=== PATIENT | male | born 1985 | race Caucasian/White ===

== ENCOUNTER 2023-06-09 08:47 | Outpatient (CLI) | payer BC, MEDICAID, SELFPAY ==
--- NOTE | 2023-06-09 08:55 | XR_ITS ---
WS: [id number] XR thoracic spine 3V* [id number] REASON FOR EXAM: M54.9 - Dorsalgia, unspecified FINDINGS: Minimal mid thoracic scoliosis convex left. No significant kyphosis. No significant abnormality of the thoracic vertebrae. There is a mild/moderate biconcave compression deformity of the L1. Mild biconcave compression deform ity of L2. Disc spaces in the thoracic spine are intact and relatively well preserved. IMPRESSION: Minimal thoracic scoliosis. Thoracic spine otherwise unremarkable. Lumbar compression deformities of unknown chronicity.
--- NOTE | 2023-06-09 08:55 | XR_ITS ---
WS: [id number] XR cervical spine 3V* [id number] REASON FOR EXAM: M54.2 - Cervicalgia FINDINGS: Straightening of the normal lordosis of the cervical spine. Normal odontoid and vertebral bodies. Minimal narrowing of the C6-C7 disc space with anterior osteophytes of C6 and C7. No significant listhesis. No facet joint abnormality. IMPRESSION: Alteration of the normal cervical spine curvature as above. Mild/moderate degenerative spondylosis at C6-C7.
== END 2023-06-09 08:48 | disposition home or self-care (01) ==
PROVIDERS: PCP Nurse Practitioner Family; Visit Provider Nurse Practitioner Family
DX: M54.2 Cervicalgia (principal); M54.6 Pain in thoracic spine; M41.9 Scoliosis, unspecified; M47.812 Spondylosis without myelopathy or radiculopathy, cervical region; R93.7 Abnormal findings on diagnostic imaging of other parts of musculoskeletal system
CPT/HCPCS: 72040; 72072

== ENCOUNTER → 2023-07-15 10:22 | Outpatient (BNVA) | payer BC, MEDICAID, SELFPAY | PROVIDERS: PCP Nurse Practitioner Family; Visit Provider Nurse Practitioner Family | DX: M54.50 Low back pain, unspecified (principal); G51.0 Bell's palsy; M54.2 Cervicalgia; I10 Essential (primary) hypertension | CPT/HCPCS: 80053; 86038; 86140; 86431 ==

== ENCOUNTER 2023-08-06 02:54 | Emergency (ER) | payer BC, MEDICAID, SELFPAY ==
[2023-08-06 02:55] VITALS: BP 140/68; PULSE 69; RESP 18; O2SAT 100; BMI 26.6
[2023-08-06 03:00] VITALS: BP 140/68; PULSE 74; RESP 18; O2SAT 100
--- NOTE | 2023-08-06 03:02 | ED_ITS ---
HPI - Back Pain/Injury General: Chief Complaint: Back Pain/Injury Stated Complaint: back pain, n/v Time Seen by Provider: 08/06/23 02:57 History of Present Illness: Patient is a 38-year-old male who presents to the emergency room via EMS for back pain and nausea. Patient reports that he has had back pain for the past 8 weeks and has been an ongoing issue for quite some time now. Patient reports that he was out on the front porch around midnight sitting on the porch swing. Stated he wanted to go back to bed but felt that he was back beginning to spasm. Stated that he did not do anything at that time to cause severe back pain. Tried laying down but did not help and called EMS. EMS gave 100 mcg fentanyl in route and patient stated back pain felt better. Denies any worsening or improving factors. No other complaints at this time. MD elicited complaint: back pain Associated symptoms: Deny abdominal pain, chills, fever(s), nausea or vomiting Review of Systems Const: Denies: fever(s) or chills Eyes: Denies: change in vision or blurry vision ENMT: Denies: throat pain or mouth pain Card: Denies: chest pain or palpitations Resp: Denies: dyspnea or productive cough GI: Denies: abdominal pain, nausea or vomiting : Denies: flank pain or difficulty urinating Musc: Reports: back pain and limited range of motion; Denies: neck pain Skin/Breast: Denies: rash or pruritus Neuro: Reports: weakness in extremities; Denies: headache(s) [facility] ED PFSH: Medical History Broken back 2014 Surgical History Hx of hernia repair Family History Mother Liver disease Father Non Hodgkin's lymphoma Social History Smoking and tobacco status: current every day smoker e-cigarettes Alcohol intake: current Alcohol intake frequency: few times a month Physical Exam Const: COMMON NORMALS: patient oriented x3 and alert GENERAL APPEARANCE: cooperative ORIENTATION/CONSCIOUSNESS: Yes awake HENMT: COMMON NORMALS: normocephalic HEAD & SCALP: normal to inspection and normocephalic FACE & SINUS: normal facial exam Eye: COMMON NORMALS: Equal, round and reactive pupils present and EOMs intact bilaterally PUPIL: Yes Equal, round and reactive pupils present Neck/C-Spine: COMMON NORMALS: full ROM, no lymphadenopathy and no JVD Lymph: LYMPHATIC: no lymphadenopathy noted Chest: CHEST: Yes Symmetrical chest wall rise Resp: COMMON NORMALS: normal respiratory effort and clear to auscultation bilaterally EFFORT & INSPECTION: Yes symmetric chest movement AUSCULTATION: clear to auscultation bilaterally Cardio: COMMON NORMALS: no JVD and S1 normal heart sound present HEART SOUNDS: S1 normal heart sound present GI: COMMON NORMALS: Normal to inspection, nondistended, normoactive bowel sounds present : BLADDER/KIDNEY EXAM: Yes CVA tenderness Back/Pelvis: GENERAL BACK: Yes CVA tenderness THORACIC SPINE/UPPER BACK: Yes normal to inspection, Yes ROM limited and Yes pain with ROM LUMBAR SPINE/LOWER BACK: Yes normal to inspection, Yes ROM limited and Yes pain with ROM Extremity: COMMON NORMALS: normal to inspection Neuro: COMMON NORMALS: patient oriented x3 SENSORIUM/ORIENTATION: Yes alert Course Vital Signs: Vital signs: Vital Signs Pulse Rate 67 08/06/23 03:56 Respiratory Rate 16 08/06/23 03:56 Blood Pressure 120/67 08/06/23 03:56 Pulse Oximetry 99 08/06/23 03:56 Oxygen Delivery Me thod Room Air 08/06/23 03:31 MDM - Back Pain/Injury Medical Decision Making Patient presents with back pain is chronic but going for months he has no signs of epidural abscess or cord compression he has an MRI scheduled for tomorrow he is to get the MRI scheduled he is stable for discharge follow-up with PCP and return if worsening Medical Records I reviewed the patient's medical records. Labs I reviewed the patient's lab results. 08/06/23 02:09 08/06/23 02:09 Laboratory Results WBC 11.81 10^3/uL (3.29-11.43) H 08/06/23 02:09 RBC 5.13 10^6/uL (3.85-5.65) 08/06/23 02:09 Hgb 15.80 g/dL (11.27-16.99) 08/06/23 02:09 Hct 44.8 % (37-53) 08/06/23 02:09 MCV 87.3 fl (82-101) 08/06/23 02:09 MCH 30.8 pg (27-33) 08/06/23 02:09 MCHC 35.3 g/dL (30-55) 08/06/23 02:09 RDW 12.2 % (12.1-15.1) 08/06/23 02:09 Plt Count 250 10^3/cmm (157-399) 08/06/23 02:09 MPV 9.5 fL (7.4-10.4) 08/06/23 02:09 Neut % (Auto) 57.6 % 08/06/23 02:09 Lymph % (Auto) 33.6 % 08/06/23 02:09 [place] % (Auto) 6.8 % 08/06/23 02:09 Eos % (Auto) 1.3 % 08/06/23 02:09 Baso % (Auto) 0.3 % 08/06/23 02:09 Neut # (Auto) 6.81 10^3/uL (1.8-7.7) 08/06/23 02:09 Lymph # (Auto) 4.0 10^3/uL (0.8-4.8) 08/06/23 02:09 [place] # (Auto) 0.8 10^3/uL (0.2-0.9) 08/06/23 02:09 Eos # (Auto) 0.2 10^3/uL (0.0-0.8) 08/06/23 02:09 Baso # (Auto) 0.0 10^3/uL (0.0-0.1) 08/06/23 02:09 Nucleated RBC % (auto) 0 % 08/06/23 02:09 Nucleated RBCs # 0.0 /100WBC 08/06/23 02:09 Sodium 136 mmol/L (136-145) 08/06/23 02:09 Potassium 3.3 mmol/L (3.5-5.1) L 08/06/23 02:09 Chloride 98 mmol/L (98-107) 08/06/23 02:09 Carbon Dioxide 20 mmol/L (22-29) L 08/06/23 02:09 Anion Gap 21.3 (5-19) H 08/06/23 02:09 BUN 11 mg/dL (6-20) 08/06/23 02:09 Creatinine 1.0 mg/dL (0.7-1.2) 08/06/23 02:09 GFR Calculation 84.5 mL/min (90-130) L 08/06/23 02:09 Glucose 101 mg/dL (65-115) 08/06/23 02:09 Calculated Osmolality 282 mOsm/kg (285-295) L 08/06/23 02:09 Calcium 9.3 mg/dL (8.5-10.5) 08/06/23 02:09 Total Bilirubin 0.8 mg/dL (0.15-1.2) 08/06/23 02:09 AST 19 U/L (0-40) 08/06/23 02:09 ALT 22 U/L (0-41) 08/06/23 02:09 Alkaline Phosphatase 61 U/L (40-130) 08/06/23 02:09 Total Protein 8.2 g/dL (6.6-8.7) 08/06/23 02:09 Albumin 5.0 g/dL (3.5-5.2) 08/06/23 02:09 Globulin 3.2 g/dL (1.3-4.6) 08/06/23 02:09 Lipase 40 U/L (13-60) 08/06/23 02:09 No radiology studies performed this visit Discharge Plan Discharge Patient Disposition: Home Clinical Impression: Back pain Condition: Stable Prescriptions: New methocarbamol 750 mg tablet 750 mg PO Q6H PRN (Reason: spasms) Qty: 20 0RF No Action fexofenadine [Caty Allergy] 180 mg tablet 180 mg PO DAILY Qty: 90 0RF celecoxib [Celebrex] 100 mg capsule 100 mg PO BID Qty: 60 0RF Discharge Orders: Discharge ED (Routine); Ordered 08/06/23 Ordered By: Dacia Ford Referrals: Tracey Pagan FNP [Primary Care Provider] - 1-3 days Discharge Diet: Advance as tolerated Discharge Activity: Resume usual activity Patient Instructions: Back Pain (ED) Coding Level of Care Code ED Business Director for Kelly Lora
[2023-08-06 03:04] LABS: Basophils % 0.3 %; Eosinophils # 0.2 10^3/uL (0.0-0.8); Eosinophils % 1.3 %; Hematocrit 44.8 % (37-53); Lymphocytes % 33.6 %; Mean Corpuscular HGB Conc 35.3 g/dL (30-55); Mean Corpuscular Hemoglobin 30.8 pg (27-33); Mean Corpuscular Volume 87.3 fl (82-101); Mean Platelet Volume 9.5 fL (7.4-10.4); Monocytes # 0.8 10^3/uL (0.2-0.9); Monocytes % 6.8 %; Neutrophils # 6.81 10^3/uL (1.8-7.7); Neutrophils % 57.6 %; Nucleated Red Blood Cells % 0 %; Platelet Count 250 10^3/cmm (157-399); Red Blood Count 5.13 10^6/uL (3.85-5.65); Red Cell Distribution Width 12.2 % (12.1-15.1); White Blood Count 11.81 10^3/uL (3.29-11.43)
[2023-08-06 03:23] LABS: Alanine Aminotransferase 22 U/L (0-41); Alkaline Phosphatase 61 U/L (40-130); Anion Gap 21.3 (5-19); Aspartate Amino Transferase 19 U/L (0-40); Blood Urea Nitrogen 11 mg/dL (6-20); Calcium 9.3 mg/dL (8.5-10.5); Carbon Dioxide 20 mmol/L (22-29); Chloride 98 mmol/L (98-107); Globulin 3.2 g/dL (1.3-4.6); Glomerular Filtration Rate 84.5 mL/min (90-130); Glucose 101 mg/dL (65-115); Lipase 40 U/L (13-60); Osmolality Calculated 282 mOsm/kg (285-295); Potassium 3.3 mmol/L (3.5-5.1); Sodium 136 mmol/L (136-145); Total Bilirubin 0.8 mg/dL (0.15-1.2); Total Protein 8.2 g/dL (6.6-8.7)
[2023-08-06 03:30] VITALS: RESP 25
[2023-08-06] MEDS: ketorolac 30 mg/mL INJ IVP (03:30)
[2023-08-06] MEDS: morphine 4 mg/mL SDV 1 mL IVP (03:30)
[2023-08-06 03:31] VITALS: BP 105/75; PULSE 63; RESP 18; O2SAT 100
[2023-08-06 03:56] VITALS: BP 120/67; PULSE 67; RESP 16; O2SAT 99
== END 2023-08-06 03:57 | disposition home or self-care (01) ==
PROVIDERS: Emergency Provider Emergency Medicine; PCP Nurse Practitioner Family
DX: M54.9 Dorsalgia, unspecified (principal); F17.290 Nicotine dependence, other tobacco product, uncomplicated
CPT/HCPCS: 80053; 83690; 85025; 96374; 96375; 99284; J1885; J2270

== ENCOUNTER 2023-08-07 06:01 | Outpatient (CLI) | payer BC, MEDICAID, SELFPAY ==
--- NOTE | 2023-08-07 07:15 | MR_ITS ---
WS: [id number] MRI LUMBAR SPINE NONCONTRAST HISTORY: M54.50 - Low back pain, unspecified COMPARISON: None available. TECHNIQUE: Sagittal and axial multisequence imaging is submitted. T4 hemangioma. Grade 1 spondylolisthesis of L5 by 5.5 mm. There is mild unroofing of the disc. There is mild disc de siccation at L5-S1. There is additional mild anterior wedging of L1 with a Schmorl's node. Benign hem angioma at L2. Conus terminates normally at L1-2 disc level. L1-L2: Normal. L2-L3: Normal. L3-L4: Normal. L4-L5: Mild annular disc bulging with mild ligamentum flavum and facet arthritis. There is mild encro achment upon the central canal. Only mild central and subarticular recess encroachment. L5-S1: No central stenosis. Moderate facet joint arthritis greatest on the RIGHT. Bilateral pars defe cts at L5. Mild to moderate bilateral foraminal stenosis, RIGHT greater than LEFT. There is encroachm ent upon the L5 nerve roots, RIGHT greater than LEFT. Paravertebral soft tissues are in negative. IMPRESSION: 1. Grade 1 spondylolisthesis of L5 with bilateral pars defects. 2. Bilateral mild to moderate foraminal stenosis at L5-S1. 3. Mild encroachment upon the central canal of L4-5. Only very mild central and subarticular recess s tenosis. 4. Mild chronic anterior wedging of L1 with a Schmorl's node.
== END 2023-08-07 06:02 | disposition home or self-care (01) ==
PROVIDERS: PCP Nurse Practitioner Family; Visit Provider Nurse Practitioner Family
DX: M54.50 Low back pain, unspecified (principal); M43.16 Spondylolisthesis, lumbar region; M48.07 Spinal stenosis, lumbosacral region
CPT/HCPCS: 72148

== ENCOUNTER → 2023-09-01 10:42 | Outpatient (BNVA) | payer BC, MEDICAID, SELFPAY | PROVIDERS: PCP Nurse Practitioner Family; Visit Provider Orthopaedic Surgery | DX: M43.17 Spondylolisthesis, lumbosacral region (principal) | CPT/HCPCS: 72110 ==

== ENCOUNTER 2024-02-03 20:34 | Emergency (ER) | payer BC, MEDICAID, SELFPAY ==
[2024-02-03 20:52] VITALS: BP 100/56; PULSE 71; RESP 16; TEMP 36.3; O2SAT 98; BMI 26.6
--- NOTE | 2024-02-03 21:33 | CTR_ITS ---
PROCEDURE INFORMATION: Exam: CT Lumbar Spine Without Contrast Exam date and time: 02/03/2024 9:39 PM Age: 38 years old Clinical indication: Low back pain; Additional info: Low back pain/groin numbness TECHNIQUE: Imaging protocol: Computed tomography of the lumbar spine without contrast. Radiation optimization: All CT scans at this facility use at least one of these dose optimization techniques: automated exposure control; mA and/or kV adjustment per patient size (includes targeted exams where dose is matched to clinical indication); or iterative reconstruction. COMPARISON: MR lumbar spine wo con* [id number] 08/07/2023 7:17 AM RADIATION DOSE METRICS: Total DLP (mGy-cm): 781 FINDINGS: Bones/joints: L1 vertebral body superior endplate compression fracture without retropulsion of bony fragments similar to prior exam. L1-L2: No significant disc bulge or herniation. No severe spinal canal stenosis. No significant neural foraminal narrowing. L2-L3: No significant disc bulge or herniation. No severe spinal canal stenosis. No significant neural foraminal narrowing. L3-L4: No significant disc bulge or herniation. No severe spinal canal stenosis. No significant neural foraminal narrowing. L4-L5: No significant disc bulge or herniation. No severe spinal canal stenosis. No significant neural foraminal narrowing. L5-S1: L5-S1 bilateral L5 pars interarticularis defects with grade 1 anterolisthesis of L5 relative to S1 of 6.1 mm with a broad-based disc bulge resulting in severe bilateral foraminal narrowing. Soft tissues: Unremarkable. CT/CT lumbar spine wo con* [id number] IMPRESSION: 1. L5-S1 bilateral L5 pars interarticularis defects with grade 1 anterolisthesis of L5 relative to S1 of 6.1 mm with a broad-based disc bulge resulting in severe bilateral foraminal narrowing. 2. L1 vertebral body superior endplate compression fracture without retropulsion of bony fragments similar to prior exam.
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
[2024-02-03] MEDS: orphenadrine 30 mg/mL Inj 2 mL 60 MG IM (21:45)
[2024-02-03] MEDS: ketorolac 60 mg/2 mL INJ IM (21:46)
[2024-02-03] MEDS: dexamethasone 10 mg/mL INJ 8 MG IM (21:46)
[2024-02-03 21:50] VITALS: PULSE 60; RESP 15; O2SAT 98
[2024-02-03 22:00] VITALS: PULSE 52; RESP 16; O2SAT 99
--- NOTE | 2024-02-03 22:50 | PC.NURSE ---
Report to [facility]
[2024-02-03 23:32] VITALS: PULSE 66; RESP 16; O2SAT 98
== END 2024-02-03 23:34 | disposition home or self-care (01) ==
PROVIDERS: Emergency Provider Physician Assistant; PCP Nurse Practitioner Family
DX: M54.16 Radiculopathy, lumbar region (principal); M48.061 Spinal stenosis, lumbar region without neurogenic claudication; F17.290 Nicotine dependence, other tobacco product, uncomplicated
CPT/HCPCS: 72131; 96372; 99284; J1100; J1885; J2360

== ENCOUNTER → 2024-02-04 14:56 | Outpatient (BNVA) | payer BC, MEDICAID, SELFPAY | PROVIDERS: PCP Nurse Practitioner Family; Visit Provider Orthopaedic Surgery | DX: M43.17 Spondylolisthesis, lumbosacral region (principal); M54.42 Lumbago with sciatica, left side; M54.41 Lumbago with sciatica, right side; G89.29 Other chronic pain | CPT/HCPCS: 36415; 72110; 80053; 81003; 85025 ==

== ENCOUNTER → 2024-02-19 10:09 | Outpatient (BNVA) | payer BC, MEDICAID, SELFPAY | PROVIDERS: PCP Nurse Practitioner Family; Visit Provider Family Medicine | DX: Z01.818 Encounter for other preprocedural examination (principal) | CPT/HCPCS: 85025 ==

== ENCOUNTER 2024-03-02 16:07 | Observation (INO) | payer BC, MEDICAID, SELFPAY ==
[2024-03-02] VITALS (18 sets, daily range): BP systolic 98–121; BP diastolic 54–88; PULSE 62–88; RESP 16–20; TEMP 36.4–36.6; O2SAT 94–100; BMI 26.7
--- NOTE | 2024-03-02 | XR_ITS ---
WS: [id number] XR lumbar spine 2-3V* [id number] REASON FOR EXAM: ADEEL PICS FINDINGS: Posterior decompression with pedicle screws and interconnecting bars L5-S1. Interbody fusion device a t L5-S1. Surgical appliances are intact and in proper position and alignment. XR/XR lumbar spine 2-3V* [id number] IMPRESSION: Posterior lumbar fusion without abnormality
[2024-03-02] MEDS: sodium chloride 0.9% 1,000 ML 30 ML IV (11:54)
--- NOTE | 2024-03-02 12:21 | P.ANESASSM_ITS ---
Pre-Anesthetic Assessment Height/Weight: Height 1.75 m Weight 82.1 kg O2 Del Method Room Air 03/02/24 11:33 Preop Diagnosis: Lumbar stenosis neurogenic claudication Operation Date: 03/02/24 12:45 Proposed Procedures p Posterior Lumbar Interbody Fusion(Not Applicable) - Mario Conway, DO Was Beta Ivonne taken within 24 hours: N/A Last intake: Intake Last Liquid Date 03/01/24 Last Liquid Time 23:00 Last Solid Date 03/01/24 Last Solid Time 19:30 Social Alcohol and Tobacco Airway Submandibular: within normal limits Cervical ROM: within normal limits Mallampati: Class II History/ROS No significant history except as noted Anesthetic Plan ASA status: 2 Anesthesia: General Medications/Allergies Home Medications Medication Instructions Recorded Confirmed Last Taken Type fexofenadine 180 mg tablet 180 mg PO DAILY #90 tabs 06/15/23 03/01/24 02/25/24 Rx (Caty Allergy) methocarbamol 750 mg tablet 750 mg PO Q6H PRN spasms #20 tabs 08/06/23 03/01/24 02/04/24 Rx celecoxib 100 mg capsule (Celebrex) 100 mg PO BID #60 caps 10/12/23 03/02/24 02/25/24 Rx tramadol 50 mg tablet 50 mg PO BID PRN pain #30 tabs 10/20/23 03/01/24 02/04/24 Rx bone growth stimulator #1 ea 02/10/24 Unknown Rx Allergies Allergy/AdvReac Type Severity Reaction Status Date / Time acetaminophen [From Percocet] Allergy ADR-Vomitin Verified 03/02/24 11:28 g oxycodone Allergy ADR-Vomitin Verified 03/02/24 11:28 g Current Medications Generic Name Dose Route Start Last Admin Trade Name Freq PRN Reason Stop Dose Admin Sodium Chloride 1,000 mls @ 30 mls/hr 03/02/24 12:00 03/02/24 11:54 Sodium Chloride 0.9% IV 30 mls/hr .Q24H CHELSEA Administration PFSH Anesthesia Medical History Broken back 2015 Surgical History Hx of hernia repair Family History Mother Liver disease Father Non Hodgkin's lymphoma Social History Smoking and tobacco/nicotine status: current every day tobacco/nicotine user e- cigarettes Alcohol intake: current Alcohol intake frequency: few times a month Data Anesthesia Cardiac Studies: No Data to Display
--- NOTE | 2024-03-02 12:35 | W.PM.OPSUD ---
Surgery/Procedure H&P Update DATE OF PROCEDURE: March 02, 2024 DATE H&P PERFORMED: 02/19/24 H&P UPDATE INFORMATION: I have reviewed H&P completed within last 30 days, I have examined patient prior to procedure and No changes to prior documentation PREOP DIAGNOSIS: Lumbar stenosis neurogenic claudication PLANNED PROCEDURE: Operation Date: 03/02/24 12:45 Proposed Procedures p Posterior Lumbar Interbody Fusion(Not Applicable) - Mario Conway DO
[2024-03-02] MEDS: ceFAZolin 2,000 MG in sodium chloride 0.9% (plus) 50 ML 100 MG IV ×2 (13:19→20:25)
[2024-03-02] MEDS: heparin, porcine 1,000 unit/mL INJ 10 mL 10000 UNIT IRRIGATION (13:52)
[2024-03-02] MEDS: lidocaine-epi 1% 20 mL INJ INJECTION (13:53)
[2024-03-02] MEDS: vancomycin 1,000 MG SDV 1000 MG XX (13:54)
--- NOTE | 2024-03-02 15:56 | PM.OP ---
Operative Report Date of procedure: March 02, 2024 Pre-op diagnosis: L5-S1 spondylolisthesis Post-op diagnosis: same Procedure done: 1. L5/S1 Interbody fusion with posterolateral fusion 2. Instrumentation L5/S1 3. Cage at L5/S1 4. L5-S1 laminectomy with facetectomies 5. Use of computer navigation/stereotactic for spine 6 . use of autograft from same incision 7. allograft 8. Bone marrow aspirate from right iliac crest Surgeon: Mario Conway DO Estimated blood loss (mL): 150 Procedure: 1. L5/S1 Interbody fusion with posterolateral fusion 2. Instrumentation L5/S1 3. Cage at L5/S1 4. L5-S1 laminectomy with facetectomies 5. Use of computer navigation/stereotactic for spine 6 . use of autograft from same incision 7. allograft 8. Bone marrow aspirate from right iliac crest Patient is brought to the operative suite. After undergoing anesthesia, the patient had neuro monitoring attached. Patient was then placed in the prone position on the Mark table. All areas of impingement were well-padded. Patient was then prepped and draped in the normal sterile fashion. Skin incision was then made over the L5/S1 space. Subperiosteal dissection was made out to the transverse processes of L5 and sacral ala bilaterally. The [employer] bone marrow aspirate kit was used to aspirate bone marrow aspirate. This was done by using the sharp probe to open up the bone of the right iliac crest. Aspiration was performed and then the blunt probe was then used to dissect down to through the bone tunnel. An aspirating well drawn back a millimeter approximately 10 cc of bone marrow aspirate was used. Admixed with the allograft and autograft bone that will be used. Next 2 pins were placed for the computer navigation. These 2 pins were placed in the right iliac crest. The fiducial was attached. Seems brought in and spun around the patient. The information from serum was then loaded the computer later used for the peer navigation for placement of the pedicle screws. The technique for placing the pedicle screws was to use a drill followed by the gearshift probe linked to computer navigation. Followed by the ball probe to feel the superior inferior medial lateral story of the pedicles. Then placement of the screws linked to computer navigation. Was done at each pedicle. Screws were placed at L5 bilaterally and S1. Next attention was brought to performing the laminectomy ofL5. This was done using the high-speed bur Kerrisons and curettes. Once the lamina was removed and then attention was brought to performing a partial facetectomy on the contralateral side. This was done again using the high-speed bur curettes and Kerrisons. The ligamentum flavum was taken down bilaterally from L5 to S1. Attention was then brought to the facet on the ipsilateral side. The facet was taken down. The S1 nerve was decompressed as it passed around the S1 pedicle. The laminectomy was done for purposes of decompressing the nerve as well as placement of the cage. The L5 nerve was identified as it traversed through the L5/S1 foramen. The thecal sac was identified and retracted. The L5/S1 disc base was identified. Using a knife the disc base was opened. And then sequential erin were placed. The first shaver was a 6 and the last shaver was a 10. Using a pituitary and down going curette the endplates were scraped and disc material was removed from the space. Once adequate decompression of the disc base was felt to be had. Osteoamp sponge was packed into the anterior aspect of the disc base. Then a size 11 cage from [email or web address] was placed after packing osteoamp into the cage. While placing the cage the thecal sac and S1 nerve was protected. C arm was used to ensure that the cages placed in the appropriate position. Attention was then brought to attaching the rods to the screws placed in the L5 bilaterally and S1 bilaterally. Caps were torqued into position. Locking the construct in place. Wound was copiously irrigated and then attention was brought to decorticating the facets and transverse processes laterally. Bone that was taken down from the lamina was used along with osteoamp fibers and sponges were packed into the lateral gutters along the facet joints. This was done bilaterally. Wound was then closed in a layered fashion starting with the thoracolumbar fascia. 0-vicryl was used the sub cutaneous tissue was closed with 2-0 vicryl and skin with 4-0 monocryl. Glue was then used to seal the skin and a steril dressing was applied. Patient was then placed in the supine position. The endotracheal tube was removed and patient was transferred to the PACU in stable condition.
[2024-03-02] MEDS: HYDROmorphone 1 mg/mL INJ 1 mL (16:12)
[2024-03-02] MEDS: HYDROmorphone 1 mg/mL INJ 1 mL 0.5 MG IVP ×2 (16:29→16:50)
[2024-03-02] MEDS: methocarbamol 750 mg Tablet PO (17:58)
[2024-03-02] MEDS: lactated ringers 1,000 ML 90 ML IV (17:58)
[2024-03-02] MEDS: HYDROcodone-acetaminophen 5-325 mg Tablet PO (18:27)
[2024-03-02] MEDS: ketorolac 30 mg/mL INJ IVP (20:22)
[2024-03-02] MEDS: docusate sodium 100 mg Capsule PO (20:23)
[2024-03-02] MEDS: morphine 4 mg/mL SDV 1 mL 2 MG IVP (22:00)
[2024-03-02] MEDS: ondansetron 2 mg/ML SDV 2 mL 4 MG IVP (22:00)
[2024-03-03] VITALS: BP 99/61; PULSE 64; RESP 20; TEMP 36.6; O2SAT 96
[2024-03-03] MEDS: HYDROcodone-acetaminophen 5-325 mg Tablet PO ×4 (02:03→14:24)
[2024-03-03] MEDS: methocarbamol 750 mg Tablet PO ×2 (02:03→10:20)
[2024-03-03] MEDS: ceFAZolin 2,000 MG in sodium chloride 0.9% (plus) 50 ML 100 MG IV (04:53)
[2024-03-03] MEDS: lactated ringers 1,000 ML 90 ML IV (04:53)
[2024-03-03 07:56] VITALS: BP 99/57; PULSE 45; RESP 15; TEMP 36.4; O2SAT 99
--- NOTE | 2024-03-03 08:03 | PM.DCS ---
Discharge Providers Date of Admission: 03/02/24 16:07 Date of Discharge: March 03, 2024 Attending Provider at Admission: Mario Conway DO Attending Provider at Discharge: Mario Conway DO Primary Care Provider: GREER Pompa Reason for Visit Reason for Visit: M43.17 Physical Exam Narrative: pain in LB good strength BLE Discharge Data Studies Completed and Pending Pending at discharge Category Date Time Status C-arm Fluoroscopy 53073 Routine Exams 03/02/24 11:23 Taken Vitals Last Vital Signs Temp 97.6 F 03/03/24 07:56 Pulse 45 L 03/03/24 07:56 Resp 15 03/03/24 07:56 BP 99/57 03/03/24 07:56 Pulse Ox 99 03/03/24 07:56 O2 Del Method Room Air 03/03/24 07:56 O2 Flow Rate 3 03/02/24 16:56 Discharge Plan Discharge Patient Disposition: Home Condition: Stable Prescriptions: New hydrocodone-acetaminophen 5-325 mg tablet 1 - 2 tab PO .Q4-6H Qty: 40 0RF Continued tramadol 50 mg tablet 50 mg PO BID PRN (Reason: pain) Qty: 30 0RF fexofenadine [Caty Allergy] 180 mg tablet 180 mg PO DAILY Qty: 90 0RF celecoxib [Celebrex] 100 mg capsule 100 mg PO BID Qty: 60 0RF (DME) bone growth stimulator See Rx Instructions .Route .MEDSUPPLY Qty: 1 0RF Rx Instructions: As directed methocarbamol 750 mg tablet 750 mg PO Q6H PRN (Reason: spasms) Qty: 20 0RF Discharge Orders: Discharge Order (Routine); Ordered 03/03/24 Ordered By: Mario Conway Discharge Diet: Advance as tolerated Discharge Activity: Limit activity as instructed Patient Instructions: Opioid Safety Activity Restrictions/Additional Instructions: Thank you for [facility] for your care! The following is a list of instructions, from your provider, to follow upon your discharge to ensure you have the optimal recovery from your recent injury orsurgery. Follow-up care is a lyle part of your treatment and safety. Be sure to make and go to all appointments, and call your doctor if you are having problems. If you do not already have a follow-up appointment made, call Dr. Conway office in the next 1-3 days to make follow up appointment for 1 weeks at [phone]. It is also a good idea to know your test results and keep a list of the medicines you take. Medications will be prescribed for you at your provider's discretion. These medications are to be used as instructed; if they are taken more often that prescribed they will not be refilled early and in most cases will not be refilled at all. > When a refill is needed,you should contact laura ng 2-3 business days before your prescription runs out. Medications will NOT be refilled by coal gasification technician providers after hours! > Many pain medications contain Tylenol (Acetaminophen). Do not consume more than 4,000 mg of Tylenol per day in total with any combination ofmedications. > Pain medications can cause constipation. Please use an over the counter stool softener as directed, while taking pain medications. Consulty our local pharmacist with questions or recommendations on stool softeners. If constipation persists, contact our office or your primary care provider. > While under our care,you are not to receive pain medications or other controlled substances from any other provider unless our office is notified and approves. Any attempts to do so will result in refusal to prescribe any further pain medications and possible dismissal from our practice. ? Your wound and/or dressing should remain clean and dry for 7days after surgery. On postoperative day 7 . Pad dry afterwards. No further dressing should be required from that point on. Do not put any creams or ointments on theincision > It is normal for there to be a small amount of discharge (bloody or blood tinged) present from a surgical wound for the first 1-3days. > The wound should be examined twice a day for signs of infection. Mild redness or bruising is to be expected but indications that an infection maybe starting would include; An increase in redness, swelling, or discharge, a foul odor present around the incision, and/or a fever greater than 101 ?F ? Showering is permitted, however we ask that you do not take a bath, sit in a whirlpool / Jacuzzi, or go swimming for 1 month. For only the first 2 days after surgery, lt wilt be necessary for you to cover your wound/dressing with plastic and tape to keep it dry. ? Walking is essential for the healing process after surgery. We would like you to slowly advance your walking. This should be done on relatively flat clear ground (inside or out) or can be done on a treadmill. Remember this goal does not have to happen all at once, slowly increase your distance and duration. This can be broken into more more than one walk per day as tolerated. Patients who walk as directed after surgery rarely require Physical Therapy. In the unlikely event this issue arises your provider will direct hospital staff to make the appropriate arrangements. ? No lifting over 5 pounds {a gallon of milk) or bending/twisting until further notice. Each of these activities places an unnecessary amount of stress onto the body and can impede the delicate healing process. > Instead of bending at the waist, keep your back straight and bend at the knees. > Instead of twisting your torso, keep your back straight and turn your entire body with your feet. ? You may sleep in any position which makes you comfortable. Many patients find comfort sleeping in a reclining chair. It is not abnormal to have difficulty sleeping for the first several weeks following your surgery. We recommend trying Benadry! or Tylenol PM as directed to help with your sleeping difficulties. Both medications are over the counter and available withoutprescription. ? NO SMOKING!!! Smoking dramatically increases the probability of developing postoperative wound infections. ? Common complaints after lumbar and/or thoracic spine surgery include, but are not limited to: numbness and/or tingling in the legs, pain around the incision and surrounding tissues, muscle spasms, or stiffness of the middle to low back. Contact our office if these symptoms persist or if an acute change occurs. ? No driving for the first 3-5days, and not while taking narcotics [] until seen at your follow-up appointment and cleared. There are no restrictions for riding on short trips, however if you take a longer trip, arrangements should be made to make regular stops to get out of the vehicle and stretch . ? Swelling is an unfortunate event that will take place with any surgery and is the primary source of your postoperative discomfort. While walking and regular approved activities helps control inflammation, there are additional steps you can take to minimizeswelling. > Place ice over the surgical site and surrounding tissue for twenty minutes, followed by applying a low/medium heat (heating pad) for an additional twenty minutes every 1-2 hours as needed for painrelief. > You may use of over the counter anti-inflammatory medications (Ibuprofen, Motrin, Aleve, Advil, etc) as directed on the package label. These types of medicines wm significantly reduce the amount of discomfort you experience after surgery from swelling. It should be noted that if you have and allergy to any of these medications, or a history of ulcers or kidney disease you should consult you primary care provider prior to starting these medications. Discharge Attestations Time Spent in Discharge Care*: less than 30 min Quality Metrics Clinical Quality Measures [ No reported AMI, CVA or VTE this stay] Coding Level of Care Code Acute Code for Chg Fwd
--- NOTE | 2024-03-03 09:33 | PC.CHAP ---
Pastoral Care Encounter/Spiritual Assessment Type of Contact [] Declined unload associate visit [] Patient/Family/Request visit [] Outpatient visit [] Follow-up visit [] Physician referral [] Code/Alert [x] Routine visit [] Staff referral [] Actively dying [] Patient sleeping [] Family support [] [] Out of room [] Palliative care [] [] Receiving care in room [] Pre-surgical visit [] Trauma [] Long length of stay [] ICU visit [] Other: Relational/Emotional Strength [x] Patient feels connected with others/family/visitors/staff [] Distress [] Loneliness/isolation [] Abandonment Spirituality of Patient [x] Person of Alize [] Attends Christianity of their Alize [x] Believes in Prayer [] Reads Bible or Moravian materials [] There are Spiritual issues to be addressed Flame Gouger Interventions [x] Prayer [x] Active listening [x] Non-anxious presence [x] Spiritual/emotional support [] Crisis/trauma care [] Spiritual counseling [] Bereavement support [] Provided bereavement packet [] Provided Bible/devotional materials [] Provided toy/stuffed animal, coloring book to patient or family member [] Provided Communion [] Anointing/[place] [] Salvation [x] Completed spiritual assessment [] Other: Impact on Illness or Injury [] Angry [] Fearful [] Anxious [] Often cries [] Exhaustion [] Unable to work [] Unable to attend muslim [] Unable to walk/stand [] Unable to read [] Unable to drive [] Unable to eat/drink [] Unable to sleep [] Unable to be with family [] Patient intubated [] Other: Summary Time spent with patient 5 min
[2024-03-03] MEDS: docusate sodium 100 mg Capsule PO (10:20)
[2024-03-03] MEDS: fexofenadine 60 mg Tablet 180 MG PO (10:20)
[2024-03-03] MEDS: ketorolac 30 mg/mL INJ IVP (10:21)
[2024-03-03 12:00] VITALS: BP 106/62; PULSE 51; RESP 14; TEMP 36.4; O2SAT 96
--- NOTE | 2024-03-03 14:31 | PC.SOCIAL ---
Pt needs a walker Catie pt nurse called & said that the pt needs a walker. She said he is okay with using [facility]. A choice letter filled out to be scanned into chart. Faxed walker order & notes to HOME. Called & updated Abigail at [facility]. Cyber access completed. Pre-Cert number assigned: [id number] No other needs voiced for CM.
[2024-03-03 15:37] VITALS: BP 106/62; PULSE 51; RESP 14; TEMP 36.4; O2SAT 96
== END 2024-03-03 15:38 | disposition home or self-care (01) ==
LOC: OR 16:22 → MEDSURG 16:24
PROVIDERS: Admitting Provider Orthopaedic Surgery; PCP Nurse Practitioner Family; Visit Provider Orthopaedic Surgery
PROC: (CPT 22612; principal; 2024-03-02 12:25)
DX: M48.062 Spinal stenosis, lumbar region with neurogenic claudication (principal); M43.17 Spondylolisthesis, lumbosacral region; F17.200 Nicotine dependence, unspecified, uncomplicated
CPT/HCPCS: 20930; 20936; 20939; 22633; 22634; 22853; 61783; 63052; 72100; 76000; 97110; 97116; 97161; 97530; C1713; G0378; J0131; J0690; J1100; J1170; J1644; J1885; J2250; J2270; J2405; J2704; J3010; J3370; J3490; J7030; J7120

== ENCOUNTER 2024-03-04 13:04 | Emergency (ER) | payer BC, MEDICAID, SELFPAY ==
--- NOTE | 2024-03-04 13:09 | W.ED.BACK ---
HPI - Back Pain/Injury General: Chief Complaint: Back Pain/Injury Stated Complaint: BACK PAIN Time Seen by Provider: 03/04/24 13:08 Source: patient and EMS Mode of arrival: EMS Limitations: no limitations History of Present Illness: Patient is a 38-year-old male who presents to ED today via EMS for evaluation of lower back pain. Patient is 2 days postop from back surgery by Dr. Conway. Procedures performed are as follows: Procedure done: 1. L5/S1 Interbody fusion with posterolateral fusion 2. Instrumentation L5/S1 3. Cage at L5/S1 4. L5-S1 laminectomy with facetectomies 5. Use of computer navigation/stereotactic for spine 6 . use of autograft from same incision 7. allograft 8. Bone marrow aspirate from right iliac crest Patient states he feels like he got behind on his pain medications. He has been taking hydrocodone every 4-6 hours as well as methocarbamol. Patient states most of his pain began earlier this morning when he attempted to get out of bed to urinate. He was given 200 mcg fentanyl and route by EMS. He complains of some occasional paresthesias to the left leg. MD elicited complaint: back pain Pertinent past history: prior back pain and back surgery Onset (ago): day(s) Timing: constant Severity: severe Similar Symptoms Previously: Yes Location: lumbar spine Exacerbating factors: movement and walking Relieving factors: none Associated symptoms: Reports difficulty walking (secondary to back pain); Deny abdominal pain, chills, dysuria, fatigue, fever(s), nausea, urinary urgency or vomiting Treatments prior to arrival: prescription analgesics Work related injury: No Review of Systems Const: Denies: fever(s), chills, body aches, fatigue or malaise Card: Denies: chest pain Resp: Denies: dyspnea GI: Reports: constipation; Denies: abdominal pain, nausea, vomiting, hematochezia or melena : Denies: flank pain, difficulty urinating, dysuria, urinary frequency, urinary urgency or urinary hesitancy Musc: Reports: back pain; Denies: neck pain, extremity pain, extremity swelling, joint pain or joint swelling Skin/Breast: Denies: rash Neuro: Reports: sensory changes (occasional paresthesias left leg) and difficulty walking (secondary to back pain); Denies: headache(s), numbness in extremities, weakness in extremities or lack of coordination [facility] ED PFSH: Medical History Broken back 2014 Surgical History Hx of hernia repair Family History Mother Liver disease Father Non Hodgkin's lymphoma Social History Smoking and tobacco/nicotine status: current every day tobacco/nicotine user e-cigarettes Alcohol intake: current Alcohol intake frequency: few times a month Physical Exam Const: COMMON NORMALS: average body habitus, patient oriented x3, no limitations, alert and well nourished GENERAL APPEARANCE: cooperative and in distress (appears uncomfortable secondary to pain) ORIENTATION/CONSCIOUSNESS: Yes awake, Yes oriented to person, Yes oriented to place and Yes oriented to time Resp: COMMON NORMALS: normal respiratory effort and clear to auscultation bilaterally AUSCULTATION: clear to auscultation bilaterally Cardio: COMMON NORMALS: regular rate and regular rhythm RATE: regular rate RHYTHM: regular rhythm GI: COMMON NORMALS: Normal to inspection, nondistended, normoactive bowel sounds present, Soft to palpation and non-tender INSPECTION: Yes normal to inspection PALPATION: Yes Soft to palpation : COMMON NORMALS: Yes no CVA tenderness BLADDER/KIDNEY EXAM: Yes no CVA tenderness Back/Pelvis: COMMON NORMALS: no CVA tenderness THORACIC SPINE/UPPER BACK: Yes normal to inspection and No thoracic spinal tenderness LUMBAR SPINE/LOWER BACK: Yes lumbar spinal tenderness, No paraspinal muscle tenderness, Yes paraspinal muscle spasm and Yes other soft tissue findings (surgical incisions to lower back appear clean/non-infected ) PELVIS: Yes buttocks normal and No sciatic notch tenderness SACRUM: no tenderness COCCYX: no tenderness Extremity: COMMON NORMALS: no clubbing, cyanosis or edema, no calf tenderness and no pedal edema GENERAL: Yes normal exam except as noted Neuro: COMMON NORMALS: patient oriented x3, moves all extremities, no focal motor deficits and no sensory deficits noted SENSORIUM/ORIENTATION: Yes alert, Yes oriented to person, Yes oriented to place and Yes oriented to time GAIT: Yes Unable to assess gait MOTOR EXAM: 5/5 motor strength present throughout Skin: COMMON NORMALS: no rashes or lesions noted GENERAL SKIN EXAM: no rashes or lesions noted Course Vital Signs: Vital signs: Vital Signs Pulse Rate 54 L 03/04/24 14:01 Respiratory Rate 16 03/04/24 14:01 Blood Pressure 116/65 03/04/24 14:01 Pulse Oximetry 94 03/04/24 14:01 Oxygen Delivery Me thod Room Air 03/04/24 13:12 MDM - Back Pain/Injury Medical Decision Making Patient feeling better after IV medications given here. He is currently rating his pain at a 2/10. Patient has no acute neurologic deficits. Emergent imaging unlikely to be beneficial as he is post op day 2 and would show extensive post op changes. Patient has hydrocodone, methocarbamol, and prednisone at home he can continue taking for his discomfort. He declines wanting to take the prednisone due to changes in mood. Recommend he follow-up with Dr. Conway as currently scheduled post op appointment. Return precautions given. Medical Records I reviewed the patient's medical records. No radiology studies performed this visit Discharge Plan Discharge Patient Disposition: Home Clinical Impression: Postoperative back pain Condition: Stable Prescriptions: No Action tramadol 50 mg tablet 50 mg PO BID PRN (Reason: pain) Qty: 30 0RF (DME) bone growth stimulator See Rx Instructions .Route .MEDSUPPLY Qty: 1 0RF Rx Instructions: As directed methocarbamol 750 mg tablet 750 mg PO Q6H PRN (Reason: spasms) Qty: 20 0RF hydrocodone-acetaminophen 5-325 mg tablet 1 - 2 tab PO .Q4-6H PRN (Reason: Pain) Caty Allergy 180 mg tablet 180 mg PO DAILY PRN (Reason: ALLERGIES) Celebrex 100 mg capsule 100 mg PO BID PRN (Reason: PAIN AND INFLAMATION) prednisone 20 mg tablet See Rx Instructions .ROUTE .COMPLEX Rx Instructions: TAKE 3 TABLETS BY MOUTH ONCE DAILY FOR 3 DAYS, THEN TAKE 2 TABLETS ONCE DAILY FOR 2 DAYS, THEN TAKE 1 TABLET ONCE DAILY FOR 2 DAYS Discharge Orders: Discharge ED (Routine); Ordered 03/04/24 Ordered By: Nubia Sexton Referrals: Tracey Pagan FNP [Primary Care Provider] - Patient Instructions: Opioid Safety, Pain Management Coding Level of Care Code ED Professional Organizer for Kelly Lora
[2024-03-04 13:12] VITALS: BP 116/65; PULSE 60; RESP 18; O2SAT 98
[2024-03-04] MEDS: dexamethasone 10 mg/mL INJ IVP (13:39)
[2024-03-04] MEDS: orphenadrine 30 mg/mL Inj 2 mL 60 MG IVP (13:39)
[2024-03-04] MEDS: morphine 4 mg/mL SDV 1 mL IVP (13:39)
[2024-03-04 14:01] VITALS: BP 116/65; PULSE 54; RESP 16; O2SAT 94
[2024-03-04 15:37] VITALS: BP 118/70; PULSE 54; RESP 16; TEMP 37.2; O2SAT 95
== END 2024-03-04 15:38 | disposition home or self-care (01) ==
PROVIDERS: Emergency Provider Physician Assistant; PCP Nurse Practitioner Family
DX: G89.18 Other acute postprocedural pain (principal); M54.50 Low back pain, unspecified; F17.290 Nicotine dependence, other tobacco product, uncomplicated
CPT/HCPCS: 96374; 96375; 99284; J1100; J2270; J2360

== ENCOUNTER 2024-03-06 07:14 | Emergency (ER) | payer BC, MEDICAID, SELFPAY ==
[2024-03-06 07:17] VITALS: BP 93/75; PULSE 97; TEMP 36.7; O2SAT 98; BMI 26.7
--- NOTE | 2024-03-06 07:28 | ED_ITS ---
HPI - Nausea/Vomiting/Diarrhea 2 General: Chief complaint: Nausea/Vomiting/Diarrhea Stated complaint: NAUSEA Time Seen by Provider: 03/06/24 07:19 Source: patient Mode of arrival: EMS History of Present Illness: 38-year-old male presents emergency room complaining of back pain and persistent nausea vomiting. He is 3 days postop Lumbar laminectomy with facetectomies with instrumentation and fusion at the L5-S1 level. Patient was seen postop day 2 with back pain. This morning he got up to go to the restroom bowel movement developed significant nausea with it. On arrival here he is having hyperemesis. He has been using marijuana regularly as well as hydrocodone and Celebrex methocarbamol and prednisone. MD elicited complaint: nausea and vomiting Onset (ago): minute(s) Description of vomiting: watery Associated nausea: Yes Associated abdominal pain: Yes Location of pain: Diffuse Quality: cramping Exacerbating factors: none Relieving factors: none Associated symtoms: Reports bloating and nausea; Denies altered mental status, anxiety, change in vision, chest pain, cough, diaphoresis, decreased urine output, dizziness, dysuria, epistaxis, fatigue, fecal incontinence, fevers/chills, headache(s), anorexia, malaise, myalgias, numbness, palpitations, rash, short of breath, syncope, tenesmus, tinnitus or weakness Review of Systems 2 Const: Denies: fever(s), chills, fatigue, malaise or diaphoresis Eyes: Denies: change in vision ENMT: Denies: tinnitus or epistaxis Card: Denies: chest pain, palpitations or syncope Resp: Denies: dyspnea GI: Reports: nausea and bloating; Denies: abdominal pain or fecal incontinence : Denies: dysuria, urinary frequency or urinary urgency Musc: Denies: neck pain or back pain Skin/Breast: Denies: rash Neuro: Denies: headache(s) or dizziness Psych: Denies: anxiety PFSH ED 2 PFSH: Medical History Broken back 2014 Surgical History Hx of hernia repair Family History Mother Liver disease Father Non Hodgkin's lymphoma Social History Smoking and tobacco/nicotine status: current every day tobacco/nicotine user e- cigarettes Alcohol intake: current Alcohol intake frequency: few times a month Physical Exam 2 Const: COMMON NORMALS: no acute distress EXAM LIMITATIONS: no altered mental status GENERAL APPEARANCE: cooperative and comfortable O RIENTATION/CONSCIOUSNESS: Yes awake, Yes oriented to person, Yes oriented to place and Yes oriented to time HENMT: COMMON NORMALS: normocephalic, atraumatic and hearing grossly normal bilaterally HEAD & SCALP: normocephalic and atraumatic Resp: COMMON NORMALS: normal respiratory effort, No retractions, No use of accessory muscles and clear to auscultation bilaterally AUSCULTATION: clear to auscultation bilaterally Cardio: COMMON NORMALS: regular rate, regular rhythm and No murmurs present (Cardio) RATE: regular rate RHYTHM: regular rhythm GI: COMMON NORMALS: Soft to palpation and No hepatosplenomegaly present A USCULTATION: Yes normoactive bowel sounds PALPATION: Yes Soft to palpation, No Tenderness to palpation present (GI), No Guarding due to palpation present (GI) and Yes No hepatosplenomegaly present Extremity: COMMON NORMALS: normal to inspection, capillary refill normal, no clubbing, cyanosis or edema, no calf tenderness and no pedal edema Neuro: SENSORIUM/ORIENTATION: Yes oriented to person, Yes oriented to place and Yes oriented to time Skin: COMMON NORMALS: no rashes or lesions noted GENERAL SKIN EXAM: no rashes or lesions noted Course 2 Vital Signs: Vital signs: Vital Signs Temperature 98.1 F 03/06/24 07:17 Pulse Rate 90 03/06/24 09:47 Blood Pressure 106/62 03/06/24 09:47 Pulse Oximetry 98 03/06/24 09:47 Oxygen Delivery Me thod Room Air 03/06/24 09:47 MDM - Nausea/Vomiting/Diarrhea Medical Decision Making Symptoms resolved with medications and fluids given. Pain improved. Discharged home with as needed olanzapine and Ativan. Recommend not using marijuana for pain control. Medical Records I reviewed the patient's medical records. Lab Data I reviewed the patient's lab results. 03/06/24 06:30 03/06/24 06:30 Laboratory Results WBC 10.76 10^3/uL (3.29-11.43) 03/06/24 06:30 RBC 4.39 10^6/uL (3.85-5.65) 03/06/24 06:30 Hgb 13.30 g/dL (11.27-16.99) 03/06/24 06:30 Hct 39.1 % (37-53) 03/06/24 06:30 MCV 89.1 fl (82-101) 03/06/24 06:30 MCH 30.3 pg (27-33) 03/06/24 06:30 MCHC 34.0 g/dL (30-55) 03/06/24 06:30 RDW 12.7 % (12.1-15.1) 03/06/24 06:30 Plt Count 257 10^3/cmm (157-399) 03/06/24 06:30 MPV 10.1 fL (7.4-10.4) 03/06/24 06:30 Neut % (Auto) 66.0 % 03/06/24 06:30 Lymph % (Auto) 26.3 % 03/06/24 06:30 [place] % (Auto) 5.9 % 03/06/24 06:30 Eos % (Auto) 0.7 % 03/06/24 06:30 Baso % (Auto) 0.2 % 03/06/24 06:30 Neut # (Auto) 7.09 10^3/uL (1.8-7.7) 03/06/24 06:30 Lymph # (Auto) 2.8 10^3/uL (0.8-4.8) 03/06/24 06:30 [place] # (Auto) 0.6 10^3/uL (0.2-0.9) 03/06/24 06:30 Eos # (Auto) 0.1 10^3/uL (0.0-0.8) 03/06/24 06:30 Baso # (Auto) 0.0 10^3/uL (0.0-0.1) 03/06/24 06:30 Nucleated RBC % (auto) 0 % 03/06/24 06:30 Nucleated RBCs # 0.0 /100WBC 03/06/24 06:30 Sodium 137 mmol/L (136-145) 03/06/24 06:30 Potassium 3.5 mmol/L (3.5-5.1) 03/06/24 06:30 Chloride 97 mmol/L (98-107) L 03/06/24 06:30 Carbon Dioxide 25 mmol/L (22-29) 03/06/24 06:30 Anion Gap 18.5 (5-19) 03/06/24 06:30 BUN 12 mg/dL (6-20) 03/06/24 06:30 Creatinine 0.8 mg/dL (0.7-1.2) 03/06/24 06:30 GFR Calculation 109.4 mL/min (90-130) 03/06/24 06:30 Glucose 88 mg/dL (65-115) 03/06/24 06:30 Calculated Osmolality 283 mOsm/kg (285-295) L 03/06/24 06:30 Calcium 9.7 mg/dL (8.5-10.5) 03/06/24 06:30 Magnesium 1.9 mg/dL (1.7-2.3) 03/06/24 06:30 Total Bilirubin 0.4 mg/dL (0.15-1.2) 03/06/24 06:30 AST 16 U/L (0-40) 03/06/24 06:30 ALT 12 U/L (0-41) 03/06/24 06:30 Alkaline Phosphatase 61 U/L (40-130) 03/06/24 06:30 Total Protein 8.1 g/dL (6.6-8.7) 03/06/24 06:30 Albumin 4.2 g/dL (3.5-5.2) 03/06/24 06:30 Globulin 3.9 g/dL (1.3-4.6) 03/06/24 06:30 Lipase 30 U/L (13-60) 03/06/24 06:30 Urine Color Yellow (Yellow) 03/06/24 09:10 Urine Appearance Clear (CLEAR) 03/06/24 09:10 Urine pH 6 (5-7) 03/06/24 09:10 Ur Specific [place] 1.020 (1.005-1.030) 03/06/24 09:10 Urine Protein Neg (Negative) 03/06/24 09:10 Urine Glucose (UA) Norm (Normal) 03/06/24 09:10 Urine Ketones 2+ (Negative) H 03/06/24 09:10 Urine Blood Neg (Negative) 03/06/24 09:10 Urine Nitrate Negative (Negative) 03/06/24 09:10 Urine Bilirubin Neg (Negative) 03/06/24 09:10 Urine Urobilinogen Norm mg/dL (Negative) 03/06/24 09:10 Ur Leukocyte Esterase Negative (Negative) 03/06/24 09:10 No radiology studies performed this visit Discharge Plan Discharge Patient Disposition: Home Clinical Impression: Nausea & vomiting, Postoperative back pain Condition: Stable Prescriptions: New Ativan 2 mg tablet 2 mg buccal Q6H PRN (Reason: nausea and vomiting) Qty: 10 0RF olanzapine 10 mg tablet,disintegrating 10 mg PO Q8H PRN (Reason: nausea and vomitting) Qty: 14 0RF No Action tramadol 50 mg tablet 50 mg PO BID PRN (Reason: pain) Qty: 30 0RF (DME) bone growth stimulator See Rx Instructions .Route .MEDSUPPLY Qty: 1 0RF Rx Instructions: As directed methocarbamol 750 mg tablet 750 mg PO Q6H PRN (Reason: spasms) Qty: 20 0RF hydrocodone-acetaminophen 5-325 mg tablet 1 - 2 tab PO .Q4-6H PRN (Reason: Pain) Caty Allergy 180 mg tablet 180 mg PO DAILY PRN (Reason: ALLERGIES) Celebrex 100 mg capsule 100 mg PO BID PRN (Reason: PAIN AND INFLAMATION) prednisone 20 mg tablet See Rx Instructions .ROUTE .COMPLEX Rx Instructions: TAKE 3 TABLETS BY MOUTH ONCE DAILY FOR 3 DAYS, THEN TAKE 2 TABLETS ONCE DAILY FOR 2 DAYS, THEN TAKE 1 TABLET ONCE DAILY FOR 2 DAYS Discharge Orders: Discharge ED (Routine); Ordered 03/06/24 Ordered By: Prateek Dale Referrals: Tracey Pagan FNP [Primary Care Provider] - Discharge Diet: Clear Liquid Discharge Activity: Increase activity as tolerated Patient Instructions: Opioid Safety, Pain Management Activity Restrictions/Additional Instructions: Thank you for choosing [facility] for your healthcare needs today. Please realize this is an emergency room and that we are providing you with a medical screening exam and this may not be complete and all inclusive of all the testing and or work up that you may need to determine your ailment or severity of your illness. It is very important that you follow up as instructed or that you return to the Emergency Department should you have concerns or if your condition changes or worsens in any way. You were seen today for nausea and vomiting. Improved with medications and IV fluids given. You are given lorazepam and olanzapine to use as needed for recurrent nausea and vomiting. Avoid use of marijuana. Coding Level of Care Code ED Vessel Engineer for Kelly Lora
[2024-03-06 07:32] LABS: Basophils % 0.2 %; Eosinophils # 0.1 10^3/uL (0.0-0.8); Eosinophils % 0.7 %; Hematocrit 39.1 % (37-53); Lymphocytes # 2.8 10^3/uL (0.8-4.8); Lymphocytes % 26.3 %; Mean Corpuscular Hemoglobin 30.3 pg (27-33); Mean Corpuscular Volume 89.1 fl (82-101); Mean Platelet Volume 10.1 fL (7.4-10.4); Monocytes # 0.6 10^3/uL (0.2-0.9); Monocytes % 5.9 %; Neutrophils # 7.09 10^3/uL (1.8-7.7); Nucleated Red Blood Cells % 0 %; Platelet Count 257 10^3/cmm (157-399); Red Blood Count 4.39 10^6/uL (3.85-5.65); Red Cell Distribution Width 12.7 % (12.1-15.1); White Blood Count 10.76 10^3/uL (3.29-11.43)
[2024-03-06] MEDS: sodium chloride 0.9% 1,000 ML 999 ML IV ×2 (07:41→09:01)
[2024-03-06] MEDS: haloperidol inj 5 mg/mL INJ 1 mL 2.5 MG IVP (07:42)
[2024-03-06] MEDS: LORazepam 2 mg/mL INJ 10 mL MDV IVP (07:48)
[2024-03-06 07:58] LABS: Alanine Aminotransferase 12 U/L (0-41); Albumin Level 4.2 g/dL (3.5-5.2); Alkaline Phosphatase 61 U/L (40-130); Anion Gap 18.5 (5-19); Aspartate Amino Transferase 16 U/L (0-40); Blood Urea Nitrogen 12 mg/dL (6-20); Calcium 9.7 mg/dL (8.5-10.5); Carbon Dioxide 25 mmol/L (22-29); Chloride 97 mmol/L (98-107); Creatinine Clr Calc Pharmacy 135.8861; Globulin 3.9 g/dL (1.3-4.6); Glomerular Filtration Rate 109.4 mL/min (90-130); Glucose 88 mg/dL (65-115); Lipase 30 U/L (13-60); Magnesium 1.9 mg/dL (1.7-2.3); Osmolality Calculated 283 mOsm/kg (285-295); Potassium 3.5 mmol/L (3.5-5.1); Sodium 137 mmol/L (136-145); Total Bilirubin 0.4 mg/dL (0.15-1.2); Total Protein 8.1 g/dL (6.6-8.7)
--- NOTE | 2024-03-06 08:47 | ECG_ITS ---
[facility] Test Date: 2024-03-06 Pat Name: Laci Baez Department: Room: Gender: Male Housing Coordinator: : 1985 Requested By: Prateek Rivera Order Number: [id number] [place] MD: Jr Ferro M.D. Measurements Intervals [place] Rate: 61 P: 54 IA: 132 QRS: 45 QRSD: 85 T: 58 QT: 439 QTc: 443 Interpretive Statements SINUS RHYTHM No previous ECG available for comparison Electronically Signed On 03-06-2024 12:02:29 CDT by Jr Ferro M.D. [email or web address]
[2024-03-06 09:14] LABS: Add Urine Microscopic? NO; Charge for UA Resulting for Rev
[2024-03-06 09:30] LABS: Bilirubin Urine Neg (Negative); Blood Urine Neg (Negative); Glucose Urine UA Norm (Normal); Ketones Urine 2+ (Negative); Leukocyte Esterase Urine Negative (Negative); Nitrate Urine Negative (Negative); Protein Urine Neg (Negative); Urine Appearance Clear (CLEAR); Urine Color Yellow (Yellow); Urobilinogen Urine Norm (Negative); pH Urine 6 (5-7)
[2024-03-06 09:47] VITALS: BP 106/62; PULSE 90; O2SAT 98
== END 2024-03-06 11:48 | disposition home or self-care (01) ==
PROVIDERS: Emergency Provider Family Medicine; PCP Nurse Practitioner Family
DX: R11.2 Nausea with vomiting, unspecified (principal); G89.18 Other acute postprocedural pain; F17.290 Nicotine dependence, other tobacco product, uncomplicated; M54.50 Low back pain, unspecified
CPT/HCPCS: 80053; 81003; 83690; 83735; 85025; 93005; 96361; 96374; 96375; 99284; J1630; J2060; J7030

== ENCOUNTER 2024-03-08 23:41 | Inpatient (IN) | payer BC, SELFPAY ==
[2024-03-08 23:42] VITALS: BP 155/100; PULSE 75; RESP 20; TEMP 36.6; O2SAT 100; BMI 26.6
--- NOTE | 2024-03-09 00:09 | PC.NURSE ---
Patient medications were placed in filing cabinet with personal belongings.
[2024-03-09] MEDS: LORazepam 2 mg Tablet PO (00:15)
[2024-03-09 00:19] LABS: Basophils % 0.3 %; Eosinophils # 0.1 10^3/uL (0.0-0.8); Eosinophils % 1.5 %; Hematocrit 36.6 % (37-53); Lymphocytes # 1.9 10^3/uL (0.8-4.8); Lymphocytes % 24.6 %; Mean Corpuscular HGB Conc 33.9 g/dL (30-55); Mean Corpuscular Hemoglobin 30.1 pg (27-33); Mean Corpuscular Volume 88.8 fl (82-101); Mean Platelet Volume 9.4 fL (7.4-10.4); Monocytes # 0.6 10^3/uL (0.2-0.9); Neutrophils # 5.14 10^3/uL (1.8-7.7); Neutrophils % 65.6 %; Nucleated Red Blood Cells % 0 %; Platelet Count 219 10^3/cmm (157-399); Red Blood Count 4.12 10^6/uL (3.85-5.65); Red Cell Distribution Width 12.5 % (12.1-15.1); White Blood Count 7.84 10^3/uL (3.29-11.43)
[2024-03-09 00:36] LABS: Alanine Aminotransferase 15 U/L (0-41); Albumin Level 3.8 g/dL (3.5-5.2); Alkaline Phosphatase 59 U/L (40-130); Anion Gap 16.8 (5-19); Aspartate Amino Transferase 14 U/L (0-40); Blood Urea Nitrogen 15 mg/dL (6-20); Calcium 9.4 mg/dL (8.5-10.5); Carbon Dioxide 24 mmol/L (22-29); Chloride 96 mmol/L (98-107); Creatinine Clr Calc Pharmacy 135.5589; Globulin 3.6 g/dL (1.3-4.6); Glomerular Filtration Rate 109.4 mL/min (90-130); Glucose 105 mg/dL (65-115); Osmolality Calculated 277 mOsm/kg (285-295); Potassium 3.8 mmol/L (3.5-5.1); Sodium 133 mmol/L (136-145); Total Bilirubin 0.3 mg/dL (0.15-1.2); Total Protein 7.4 g/dL (6.6-8.7)
--- NOTE | 2024-03-09 00:36 | W.ED.PSYCHS ---
Documented by User: SALMA Meyer 03/10/24 10:10 HPI - Psych General: Chief Complaint: Psychiatric Symptoms Stated Complaint: SI Time Seen by Provider: 03/08/24 23:41 Source: patient Mode of arrival: EMS Limitations: no limitations History of Present Illness: Patient is a 38-year-old male who presents to the emergency department via EMS due to suicidal ideations onset chronically but worsening today. Patient is status post back surgery 1 week ago, as he states an extensive history of back pain. He also notes to me that he is not currently on any medications for anxiety, depression, or other psychiatric illnesses. Patient reports to me that this has been building up over many years in which he states he is easy to anger and has slowly felt like more of a burden to his and kids. He comments I feel like they would be much better without me and that there is nothing for me in this world anymore if I cannot provide for them. 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 He states that this has caused he and his spouse to fight much more, and he has gotten very angry with his children. He states that one of his children already is dissociating with him altogether. In regards to his suicidal ideations currently, he states he is having them while talking with me at this time. He states his plan is to drive off of a radhika with his truck, which she has thought about doing multiple times in the past. He tells me the reason he has not done so yet, is he does not think he could do something that would not be a sure thing, alluding to the fact that he will only kill himself if it is sure to get the job done. He also notes that he has thought about overdosing on his medications multiple times, though again states that he does not think this is reasonable because it may not kill him. He has never been seen by psychiatrist or been hospitalized for psychiatric purposes. He is not reporting any homicidal ideations, hallucinations of any kind, or other psychiatric complaints. In regards to his recent back surgery, he states his pain has been controlled and incision is healing well, he just notes some constipation from his narcotic pain medication. He denies any illegal drug use. All other questions and concerns addressed at this time. complaint: suicidal ideation Onset (ago): year(s) Duration: intermittent History of same: Yes Associated symptoms: Reports depression and suicidal ideation; Deny auditory hallucinations, visual hallucinations or homicidal ideation If self harm: admits thoughts of self harm and has plan Review of Systems General: Reports: 10 or more systems reviewed and unremarkable except in HPI and below Const: Denies: fever(s), chills or fatigue Eyes: Denies: change in vision ENMT: Denies: throat pain, ear or mastoid pain or nasal discharge Card: Denies: chest pain, palpitations, swelling of feet/ankles or lightheadedness Resp: Denies: dyspnea, productive cough or wheezing GI: Reports: constipation; Denies: abdominal pain, nausea, vomiting or diarrhea : Denies: flank pain, difficulty urinating, dysuria or urinary frequency Musc: Denies: neck pain, back pain or joint pain Skin/Breast: Denies: rash Neuro: Denies: headache(s), numbness in extremities or weakness in extremities Psych: Reports: anxiety, depression, hopelessness, loss of interest and suicidal ideation; Denies: visual hallucinations, auditory hallucinations, tactile hallucinations or homicidal ideation PFSH ED PFSH: Medical History Broken back 2014 Surgical History Hx of hernia repair Family History Mother Liver disease Father Non Hodgkin's lymphoma Social History Smoking and tobacco/nicotine status: current every day tobacco/nicotine user e-cigarettes Alcohol intake: current Alcohol intake frequency: few times a month Physical Exam Const: COMMON NORMALS: patient oriented x3 and no limitations GENERAL APPEARANCE: cooperative and well developed ORIENTATION/CONSCIOUSNESS: Yes awake, Yes oriented to person, Yes oriented to place and Yes oriented to time HENMT: COMMON NORMALS: normocephalic, atraumatic and hearing grossly normal bilaterally HEAD & SCALP: normocephalic and atraumatic Eye: COMMON NORMALS: Equal, round and reactive pupils present, EOMs intact bilaterally and conjunctivae normal CONJUNCTIVA: Yes conjunctivae normal PUPIL: Yes Equal, round and reactive pupils present Neck/C-Spine: COMMON NORMALS: full ROM, supple and no JVD Resp: COMMON NORMALS: normal respiratory effort, No retractions, No use of accessory muscles and clear to auscultation bilaterally AUSCULTATION: clear to auscultation bilaterally Cardio: COMMON NORMALS: no JVD, regular rate, regular rhythm, No clicks present (Cardio), No murmurs present (Cardio) and No rub (Cardio) RATE: regular rate RHYTHM: regular rhythm GI: COMMON NORMALS: Normal to inspection, nondistended, normoactive bowel sounds present, Soft to palpation and non-tender AUSCULTATION: Yes normoactive bowel sounds PALPATION: Yes Soft to palpation RECTAL EXAM: Yes deferred Back/Pelvis: OTHER: Well-healing incision to lower back, covered up with dressing. Extremity: COMMON NORMALS: normal to inspection, full ROM and capillary refill normal Neuro: COMMON NORMALS: patient oriented x3, CN's II-XII intact bilaterally, moves all extremities, no focal motor deficits and no sensory deficits noted SENSORIUM/ORIENTATION: Yes oriented to person, Yes oriented to place and Yes oriented to time Psych: COMMON NORMALS: mental status grossly normal, Normal thought process present and speech normal APPEARANCE: Yes grossly normal ACTIVITY/MOTOR BEHAVIOR: Yes psychomotor agitation SPEECH: Yes normal speech MOOD & AFFECT: Yes sad and Yes tearful THOUGHT PROCESS: Normal thought process present THOUGHT CONTENT: Yes Suicidality present, No Homicidality present and No Hallucination(s) present ATTENTION/CONCENTRATION: Yes attention grossly intact MEMORY/COGNITION: Yes memory grossly intact INSIGHT: Good insight present (Psych) JUDGEMENT: Good judgement present (Psych) Course Vital Signs: Vital signs: Vital Signs Temperature 98.5 F 03/10/24 06:00 Pulse Rate 70 03/10/24 06:00 Respiratory Rate 16 03/10/24 06:00 Blood Pressure 95/60 03/10/24 06:00 Pulse Oximetry 97 03/10/24 06:00 Oxygen Delivery Me thod Room Air 03/10/24 06:00 MDM - Psych Medical Decision Making Care transferred over shift change. Dr. Bustillo was consulted who agreed to place patient inpatient NPU for further evaluation and treatment secondary to suicidal ideation. Lab Data 03/09/24 00:10 03/09/24 00:10 Laboratory Results WBC 7.84 10^3/uL (3.29-11.43) 03/09/24 00:10 RBC 4.12 10^6/uL (3.85-5.65) 03/09/24 00:10 Hgb 12.40 g/dL (11.27-16.99) 03/09/24 00:10 Hct 36.6 % (37-53) L 03/09/24 00:10 MCV 88.8 fl (82-101) 03/09/24 00:10 MCH 30.1 pg (27-33) 03/09/24 00:10 MCHC 33.9 g/dL (30-55) 03/09/24 00:10 RDW 12.5 % (12.1-15.1) 03/09/24 00:10 Plt Count 219 10^3/cmm (157-399) 03/09/24 00:10 MPV 9.4 fL (7.4-10.4) 03/09/24 00:10 Neut % (Auto) 65.6 % 03/09/24 00:10 Lymph % (Auto) 24.6 % 03/09/24 00:10 [place] % (Auto) 7.0 % 03/09/24 00:10 Eos % (Auto) 1.5 % 03/09/24 00:10 Baso % (Auto) 0.3 % 03/09/24 00:10 Neut # (Auto) 5.14 10^3/uL (1.8-7.7) 03/09/24 00:10 Lymph # (Auto) 1.9 10^3/uL (0.8-4.8) 03/09/24 00:10 [place] # (Auto) 0.6 10^3/uL (0.2-0.9) 03/09/24 00:10 Eos # (Auto) 0.1 10^3/uL (0.0-0.8) 03/09/24 00:10 Baso # (Auto) 0.0 10^3/uL (0.0-0.1) 03/09/24 00:10 Nucleated RBC % (auto) 0 % 03/09/24 00:10 Nucleated RBCs # 0.0 /100WBC 03/09/24 00:10 Sodium 133 mmol/L (136-145) L 03/09/24 00:10 Potassium 3.8 mmol/L (3.5-5.1) 03/09/24 00:10 Chloride 96 mmol/L (98-107) L 03/09/24 00:10 Carbon Dioxide 24 mmol/L (22-29) 03/09/24 00:10 Anion Gap 16.8 (5-19) 03/09/24 00:10 BUN 15 mg/dL (6-20) 03/09/24 00:10 Creatinine 0.8 mg/dL (0.7-1.2) 03/09/24 00:10 GFR Calculation 109.4 mL/min (90-130) 03/09/24 00:10 Glucose 105 mg/dL (65-115) 03/09/24 00:10 Calculated Osmolality 277 mOsm/kg (285-295) L 03/09/24 00:10 Calcium 9.4 mg/dL (8.5-10.5) 03/09/24 00:10 Total Bilirubin 0.3 mg/dL (0.15-1.2) 03/09/24 00:10 AST 14 U/L (0-40) 03/09/24 00:10 ALT 15 U/L (0-41) 03/09/24 00:10 Alkaline Phosphatase 59 U/L (40-130) 03/09/24 00:10 Total Protein 7.4 g/dL (6.6-8.7) 03/09/24 00:10 Albumin 3.8 g/dL (3.5-5.2) 03/09/24 00:10 Globulin 3.6 g/dL (1.3-4.6) 03/09/24 00:10 Salicylates < 0.3 mg/dL (3-10) L 03/09/24 00:10 Acetaminophen < 5.0 ug/mL (10-30) L 03/09/24 00:10 Ethyl Alcohol < 10 mg/dL (0-10) 03/09/24 00:10 No radiology studies performed this visit Discharge Plan Discharge Patient Disposition: Admitted As Inpatient Admit Provider: Benito Bustillo Clinical Impression: Suicidal ideation Condition: Stable Coding Level of Care Code ED General Cargo Clerk for Chg Fwd Documented by User: Amadou Flores DO 03/09/24 02:09 HPI - Psych General: Chief Complaint: Psychiatric Symptoms Stated Complaint: SI Time Seen by Provider: 03/08/24 23:41 PFSH ED PFSH: Medical History Broken back 2015 Surgical History Hx of hernia repair Family History Mother Liver disease Father Non Hodgkin's lymphoma Social History Smoking and tobacco/nicotine status: current every day tobacco/nicotine user e-cigarettes Alcohol intake: current Alcohol intake frequency: few times a month Course Vital Signs: Vital signs: Vital Signs Temperature 98.5 F 03/10/24 06:00 Pulse Rate 70 03/10/24 06:00 Respiratory Rate 16 03/10/24 06:00 Blood Pressure 95/60 03/10/24 06:00 Pulse Oximetry 97 03/10/24 06:00 Oxygen Delivery Me thod Room Air 03/10/24 06:00 MDM - Psych Medical Decision Making Care transferred over shift change. Dr. Bustillo was consulted who agreed to place patient inpatient MPU for further evaluation and treatment secondary to suicidal ideation. Lab Data 03/09/24 00:10 03/09/24 00:10 Laboratory Results WBC 7.84 10^3/uL (3.29-11.43) 03/09/24 00:10 RBC 4.12 10^6/uL (3.85-5.65) 03/09/24 00:10 Hgb 12.40 g/dL (11.27-16.99) 03/09/24 00:10 Hct 36.6 % (37-53) L 03/09/24 00:10 MCV 88.8 fl (82-101) 03/09/24 00:10 MCH 30.1 pg (27-33) 03/09/24 00:10 MCHC 33.9 g/dL (30-55) 03/09/24 00:10 RDW 12.5 % (12.1-15.1) 03/09/24 00:10 Plt Count 219 10^3/cmm (157-399) 03/09/24 00:10 MPV 9.4 fL (7.4-10.4) 03/09/24 00:10 Neut % (Auto) 65.6 % 03/09/24 00:10 Lymph % (Auto) 24.6 % 03/09/24 00:10 [place] % (Auto) 7.0 % 03/09/24 00:10 Eos % (Auto) 1.5 % 03/09/24 00:10 Baso % (Auto) 0.3 % 03/09/24 00:10 Neut # (Auto) 5.14 10^3/uL (1.8-7.7) 03/09/24 00:10 Lymph # (Auto) 1.9 10^3/uL (0.8-4.8) 03/09/24 00:10 [place] # (Auto) 0.6 10^3/uL (0.2-0.9) 03/09/24 00:10 Eos # (Auto) 0.1 10^3/uL (0.0-0.8) 03/09/24 00:10 Baso # (Auto) 0.0 10^3/uL (0.0-0.1) 03/09/24 00:10 Nucleated RBC % (auto) 0 % 03/09/24 00:10 Nucleated RBCs # 0.0 /100WBC 03/09/24 00:10 Sodium 133 mmol/L (136-145) L 03/09/24 00:10 Potassium 3.8 mmol/L (3.5-5.1) 03/09/24 00:10 Chloride 96 mmol/L (98-107) L 03/09/24 00:10 Carbon Dioxide 24 mmol/L (22-29) 03/09/24 00:10 Anion Gap 16.8 (5-19) 03/09/24 00:10 BUN 15 mg/dL (6-20) 03/09/24 00:10 Creatinine 0.8 mg/dL (0.7-1.2) 03/09/24 00:10 GFR Calculation 109.4 mL/min (90-130) 03/09/24 00:10 Glucose 105 mg/dL (65-115) 03/09/24 00:10 Calculated Osmolality 277 mOsm/kg (285-295) L 03/09/24 00:10 Calcium 9.4 mg/dL (8.5-10.5) 03/09/24 00:10 Total Bilirubin 0.3 mg/dL (0.15-1.2) 03/09/24 00:10 AST 14 U/L (0-40) 03/09/24 00:10 ALT 15 U/L (0-41) 03/09/24 00:10 Alkaline Phosphatase 59 U/L (40-130) 03/09/24 00:10 Total Protein 7.4 g/dL (6.6-8.7) 03/09/24 00:10 Albumin 3.8 g/dL (3.5-5.2) 03/09/24 00:10 Globulin 3.6 g/dL (1.3-4.6) 03/09/24 00:10 Salicylates < 0.3 mg/dL (3-10) L 03/09/24 00:10 Acetaminophen < 5.0 ug/mL (10-30) L 03/09/24 00:10 Ethyl Alcohol < 10 mg/dL (0-10) 03/09/24 00:10 Discharge Plan Discharge Patient Disposition: Admitted As Inpatient Admit Provider: Benito Bustillo Clinical Impression: Suicidal ideation Condition: Stable Coding Level of Care Code ED General Cargo Clerk for Kelly Lora
[2024-03-09 00:37] LABS: Acetaminophen < 5.0 ug/mL (10-30); Alcohol Level < 10 mg/dL (0-10); Salicylate < 0.3 mg/dL (3-10)
[2024-03-09 03:19] VITALS: BP 100/69; PULSE 77; RESP 17; TEMP 36.6; O2SAT 98
[2024-03-09 03:34] VITALS: PULSE 94; RESP 18; O2SAT 97
[2024-03-09 06:00] VITALS: BP 100/69; PULSE 77; RESP 17; TEMP 36.6; O2SAT 98
[2024-03-09] MEDS: HYDROcodone-acetaminophen 5-325 mg Tablet 2 TAB PO ×2 (06:54→17:05)
[2024-03-09 14:00] VITALS: BP 97/63; PULSE 68; RESP 20; TEMP 36.5; O2SAT 99
--- NOTE | 2024-03-09 15:57 | PC.NURSE ---
PT RECEIVED SOAP SUDS ENEMA FOR CONSTIPATION. PT RECEIVED ABOUT 500ML AND WAS ABLE TO HAVE A BOWEL MOVEMENT. PT REPORTS RELIEF FROM PAIN AND PRESSURE AFTER THIS BOWEL MOVEMENT.
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
[2024-03-09 19:32] VITALS: BP 104/64; PULSE 91; RESP 18; TEMP 36.7; O2SAT 100
[2024-03-09] MEDS: trazodone 50 mg Tablet PO (20:04)
[2024-03-09] MEDS: methocarbamol 750 mg Tablet PO (20:04)
[2024-03-09] MEDS: magnesium citrate Btl 296 mL PO (20:35)
[2024-03-10 06:00] VITALS: BP 95/60; PULSE 70; RESP 16; TEMP 36.9; O2SAT 97
--- NOTE | 2024-03-10 08:10 | PC.NURSE ---
UP IN [place] AMBULATING WITH A WALKER. PT REPORTS PAIN INN BACK AND HIPS AND RATES 6/10, RN TO GIVE HYDROCODONE 5/325MG TWO TABS FOR PAIN. PT RECENTLY HAD BACK SURGURY AND DR. SCHWARTZ IS TO COME TO SEE HIM TODAY AND LOOK AT DRESSING TO BACK. DRESSING IS DRY AND INTACT AT THIS TIME. DENIES SI/HI AND AVH AT THIS TIME. RATES ANXIETY AND DEPRESSION 11/11. PT STATES HIS MOOD HAS IMPROVED SINCE HAVING A BM YESTERDAY. PT GOAL FOR THE DAY IS TO MANAGE MY PAIN AND NOT LET IT GET HIGHER THAN 6. ALL QUESTIONS ANSWERED AND SUPPORT WAS VOICED.
[2024-03-10] MEDS: escitalopram 10 mg Tablet PO (08:17)
[2024-03-10] MEDS: HYDROcodone-acetaminophen 5-325 mg Tablet 2 TAB PO (08:17)
[2024-03-10] MEDS: methocarbamol 750 mg Tablet PO ×3 (08:17→18:25)
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
[2024-03-10 14:00] VITALS: BP 94/57; PULSE 72; RESP 16; TEMP 36.7; O2SAT 98
[2024-03-10 14:16] VITALS: BP 95/60; PULSE 70; RESP 16; TEMP 36.9; O2SAT 97
[2024-03-10 17:47] VITALS: BP 95/60; PULSE 70; RESP 16; TEMP 36.9; O2SAT 97
--- NOTE | 2024-03-10 17:56 | PM.CONSULT ---
Providers/Reason For Consult Consulting Physician/Specialty*: Psychiatry Reason for Consult*: Wound check Attending Physician: Benito Bustillo MD Primary Care Provider: GREER Pompa History of Present Illness History of Present Illness Laci Baez is a 38 year old male 1 week out from L5-S1 fusion was scheduled to have appointment today. Patient is in the hospital action my licensed physical therapist assistant change his dressing. Review of Systems General: Reports: 10 or more systems reviewed and unremarkable except in HPI and below Const: Denies: fever(s), chills or fatigue Eyes: Denies: change in vision ENMT: Denies: throat pain, ear or mastoid pain or nasal discharge Card: Denies: chest pain, palpitations, swelling of feet/ankles or lightheadedness Resp: Denies: dyspnea, productive cough or wheezing GI: Reports: constipation; Denies: abdominal pain, nausea, vomiting or diarrhea : Denies: flank pain, difficulty urinating, dysuria or urinary frequency Musc: Denies: neck pain, back pain or joint pain Skin/Breast: Denies: rash Neuro: Denies: headache(s), numbness in extremities or weakness in extremities Psych: Reports: anxiety, depression, hopelessness, loss of interest and suicidal ideation; Denies: visual hallucinations, auditory hallucinations, tactile hallucinations or homicidal ideation Medications/Allergies Home Medications Medication Instructions Recorded Confirmed Last Taken Type celecoxib 100 mg capsule (Celebrex) 100 mg PO BID PRN PAIN AND 03/04/24 03/09/24 Unknown History INFLAMATION fexofenadine 180 mg tablet 180 mg PO DAILY PRN ALLERGIES 03/04/24 03/09/24 Unknown History (Caty Allergy) lorazepam 2 mg tablet (Ativan) 2 mg buccal Q6H PRN nausea and 03/06/24 03/09/24 Unknown Rx vomiting #10 tabs promethazine 25 mg tablet 25 mg PO Q6H PRN nausea and 03/06/24 03/09/24 Unknown Rx vomiting #20 tabs hydrocodone 5 mg-acetaminophen 325 5 - 325 tab PO QID PRN Pain 03/09/24 03/09/24 Unknown History mg tablet methocarbamol 750 mg tablet 750 mg PO QID 03/09/24 03/09/24 Unknown History escitalopram oxalate 10 mg tablet 10 mg PO DAILY 30 days #30 tabs 03/10/24 Unknown Rx polyethylene glycol 3350 17 gram 17 g PO DAILY #30 ea 03/10/24 Unknown Rx oral powder packet (Miralax) Allergies Allergy/AdvReac Type Severity Reaction Status Date / Time oxycodone [From Percocet] Allergy ADR-Vomitin Verified 03/09/24 06:52 g Current Medications Generic Name Dose Route Start Last Admin Trade Name Freq PRN Reason Stop Dose Admin Hydrocodone Bitart/Acetaminophen 2 tab 03/09/24 05:19 03/10/24 08:17 Hydrocodone-Acetaminophen 5-325 Mg Tablet PO 2 tab Q6H PRN Administration SEVERE PAIN Escitalopram Oxalate 10 mg 03/10/24 09:00 03/10/24 08:17 Escitalopram 10 Mg Tablet PO 10 mg DAILY CHELSEA Administration Methocarbamol 750 mg 03/09/24 21:00 03/10/24 14:22 Methocarbamol 750 Mg Tablet PO 750 mg QID CHELSEA Administration Trazodone HCl 50 mg 03/09/24 03:19 03/09/24 20:04 Trazodone 50 Mg Tablet PO 50 mg BEDTIME PRN Administration SLEEP PFSH Acute PFSH: Medical History Broken back 2014 Surgical History Hx of hernia repair Family History Mother Liver disease Father Non Hodgkin's lymphoma Social History Smoking and tobacco/nicotine status: current every day tobacco/nicotine user e-cigarettes Alcohol intake: current Alcohol intake frequency: few times a month Vitals/I&O/Wt Last Vital Signs Temp 98.5 F 03/10/24 17:47 Pulse 70 03/10/24 17:47 Resp 16 03/10/24 17:47 BP 95/60 03/10/24 17:47 Pulse Ox 97 03/10/24 17:47 O2 Del Method Room Air 03/10/24 06:00 Weight last 48 hrs Weight 180 lb Physical Exam Narrative: Wound is clean dry and intact dressing was changed Data 03/09/24 00:10 03/09/24 00:10 A&P Assessment and plan (1) Status post lumbar spinal fusion: Patient is 1 week out from nurse fusion. Wound is clean dry intact we will see him in clinic in 1 week. Coding Level of Care Code Acute Code for [facility] Fwd Diagnoses Status post lumbar spinal fusion Z98.1
== END 2024-03-10 18:30 | disposition home or self-care (01) | DRG 885 ==
LOC: ER 03-09 02:08 → NP 03-09 03:12
PROVIDERS: Admitting Provider Psychiatry & Neurology Psychiatry; Emergency Provider Physician Assistant; PCP Nurse Practitioner Family; Visit Provider Psychiatry & Neurology Psychiatry
DX: F32.2 Major depressive disorder, single episode, severe without psychotic features (principal); R45.851 Suicidal ideations; G89.29 Other chronic pain; M54.9 Dorsalgia, unspecified; F17.290 Nicotine dependence, other tobacco product, uncomplicated; F43.10 Post-traumatic stress disorder, unspecified; Z98.1 Arthrodesis status; Z81.8 Family history of other mental and behavioral disorders
CPT/HCPCS: 80053; 80307; 85025; 97150; 97165; 99285

== ENCOUNTER → 2024-03-17 13:40 | Outpatient (BNVA) | payer BC, MEDICAID, SELFPAY | PROVIDERS: PCP Nurse Practitioner Family; Visit Provider Orthopaedic Surgery | DX: Z98.1 Arthrodesis status (principal) | CPT/HCPCS: 99024 ==

== ENCOUNTER → 2024-04-21 08:06 | Outpatient (BNVA) | payer BC, MEDICAID, SELFPAY | PROVIDERS: PCP Nurse Practitioner Family; Visit Provider Orthopaedic Surgery | DX: Z98.1 Arthrodesis status (principal) | CPT/HCPCS: 72100; 99024 ==

== ENCOUNTER → 2024-05-31 08:04 | Outpatient (BNVA) | payer SELFPAY | PROVIDERS: PCP Nurse Practitioner Family; Visit Provider Orthopaedic Surgery | DX: Z98.1 Arthrodesis status (principal) | CPT/HCPCS: 72100 ==

== ENCOUNTER 2024-06-03 18:54 | Inpatient (IN) | payer SELFPAY ==
[2024-06-03 18:56] VITALS: BP 155/68; PULSE 55; RESP 20; TEMP 36.6; O2SAT 100
--- NOTE | 2024-06-03 19:13 | ECG_ITS ---
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 Measurements Intervals [place] Rate: 61 P: 46 DE: 137 QRS: 26 QRSD: 93 T: 35 QT: 449 QTc: 455 Interpretive Statements SINUS RHYTHM WITH SINUS ARRHYTHMIA Compared to ECG 03/06/2024 08:47:12 No significant changes Electronically Signed On 06-04-2024 7:00:00 CDT by Jr Ferro M.D. [email or web address]
[2024-06-03 19:15] VITALS: BP 100/64; PULSE 59; RESP 18; O2SAT 100
[2024-06-03 19:17] VITALS: BP 110/64; PULSE 55; RESP 16; O2SAT 98
--- NOTE | 2024-06-03 19:18 | W.ED.PSYCHS ---
HPI - Psych General: Chief Complaint: Psychiatric Symptoms Stated Complaint: SI Time Seen by Provider: 06/03/24 18:58 History of Present Illness: 38-year-old man who presents to the emergency room with psychiatric issues. EMS initially reported that he was SI. However he had not said that to them. And he reports that the police asked him to come to the emergency room because he had been agitated because he had not been sleeping since he increased his citalopram to get medications adjusted. Initially says I just want to be here. But he says what he meant was he does not want to be here in the emergency room. He continues to deny any suicidal or homicidal ideation. However when we speak with state police apparently he had called them to come out to the house. They report that he had said very clearly that he was going to put a gun to his head [facility] PFSH: Medical History Psychiatric care Broken back 2014 Surgical History Hx of hernia repair Family History Mother Liver disease Father Non Hodgkin's lymphoma Social History Smoking and tobacco/nicotine status: never used tobacco/nicotine Alcohol intake: current Alcohol intake frequency: few times a month Physical Exam Narrative: EXAM NARRATIVE: General: Alert, no acute distress. Skin: Warm, dry. Head: Normocephalic, atraumatic. Neck: Supple, trachea midline. Eye: Extraocular movements are intact. Ears, nose, mouth and throat: mucosa moist. Cardiovascular: Regular, Normal peripheral perfusion. Respiratory: Lungs are clear to auscultation, respirations are non-labored, breath sounds are equal, Symmetrical chest wall expansion. Gastrointestinal: Soft, Nontender, Non distended Musculoskeletal: Normal ROM, no deformity. Neurological: Alert and oriented, No focal neurological deficit observed. Psychiatric: Patient initially is adamant that he is not suicidal, and when he is told that he will have to stay and that the police have written affidavit saying different than what he said he became extremely agitated. He ran through the ER and had to be redirected and was screaming at staff for some time. Police had to be called and he had to be placed into restraints. He was given some Geodon and Ativan and has calm down somewhat at this point Course Vital Signs: Vital signs: Vital Signs Temperature 98 F 06/03/24 18:56 Pulse Rate 55 L 06/03/24 19:17 Respiratory Rate 16 06/03/24 19:17 Blood Pressure 110/64 06/03/24 19:17 Pulse Oximetry 98 06/03/24 19:17 Oxygen Delivery Me thod Room Air 06/03/24 19:15 MDM - Psych Medical Decision Making Differential diagnosis: Patient with reported depression and suicidal ideation, psychosis and agitation. concerns for infection, alcohol intoxication, cardiac issues or other medical problems prior to psychiatric admission. Workup: labwork, ekg ordered to evaluate the pathologies and to clear the patient medically prior to psychiatric admission Lab Review: Laboratory results were reviewed and interpreted by myself the emergency room physician. Lab review: - Medically cleared. - EKG shows no ischemic changes. - Blood alcohol level is negative, -Tylenol and salicylate levels are negative. - No anemia. - BUN and creatinine are within normal limits. -Urinalysis and urine drug screen are still pending at admission Consultation: I spoke with psychiatrist on-call Dr. Brock agrees with admission. Assessment and plan: Agitation Psychosis Suicidal ideation -96-hour hold has been placed on the patient ? IM Ativan and IM Geodon. Patient has calmed down quite a bit and has been able to be taken out of restraints. -Admission to neuropsychiatric unit for continued evaluation and treatment. - All lab work was reviewed and interpreted personally by myself, the ER physician - Evaluation and treatment of this problem were appropriate in the emergency setting Lab Data 06/03/24 19:19 06/03/24 19:19 Laboratory Results WBC 11.78 10^3/uL (3.29-11.43) H 06/03/24 19:19 RBC 4.67 10^6/uL (3.85-5.65) 06/03/24 19:19 Hgb 14.10 g/dL (11.27-16.99) 06/03/24 19:19 Hct 40.9 % (37-53) 06/03/24 19:19 MCV 87.6 fl (82-101) 06/03/24 19:19 MCH 30.2 pg (27-33) 06/03/24 19:19 MCHC 34.5 g/dL (30-55) 06/03/24 19:19 RDW 12.3 % (12.1-15.1) 06/03/24 19:19 Plt Count 227 10^3/cmm (157-399) 06/03/24 19:19 MPV 9.5 fL (7.4-10.4) 06/03/24 19:19 Neut % (Auto) 76.4 % 06/03/24 19:19 Lymph % (Auto) 16.7 % 06/03/24 19:19 Grainger % (Auto) 5.9 % 06/03/24 19:19 Eos % (Auto) 0.4 % 06/03/24 19:19 Baso % (Auto) 0.2 % 06/03/24 19:19 Neut # (Auto) 9.00 10^3/uL (1.8-7.7) H 06/03/24 19:19 Lymph # (Auto) 2.0 10^3/uL (0.8-4.8) 06/03/24 19:19 Grainger # (Auto) 0.7 10^3/uL (0.2-0.9) 06/03/24 19:19 Eos # (Auto) 0.1 10^3/uL (0.0-0.8) 06/03/24 19:19 Baso # (Auto) 0.0 10^3/uL (0.0-0.1) 06/03/24 19:19 Nucleated RBC % (auto) 0 % 06/03/24 19:19 Nucleated RBCs # 0.0 /100WBC 06/03/24 19:19 Sodium 138 mmol/L (136-145) 06/03/24 19:19 Potassium 3.2 mmol/L (3.5-5.1) L 06/03/24 19:19 Chloride 100 mmol/L (98-107) 06/03/24 19:19 Carbon Dioxide 23 mmol/L (22-29) 06/03/24 19:19 Anion Gap 18.2 (5-19) 06/03/24 19:19 BUN 11 mg/dL (6-20) 06/03/24 19:19 Creatinine 0.9 mg/dL (0.7-1.2) 06/03/24 19:19 GFR Calculation 95.5 mL/min (90-130) 06/03/24 19:19 Glucose 108 mg/dL (65-115) 06/03/24 19:19 Calculated Osmolality 286 mOsm/kg (285-295) 06/03/24 19:19 Calcium 9.4 mg/dL (8.5-10.5) 06/03/24 19:19 Total Bilirubin 0.5 mg/dL (0.15-1.2) 06/03/24 19:19 AST 16 U/L (0-40) 06/03/24 19:19 ALT 18 U/L (0-41) 06/03/24 19:19 Alkaline Phosphatase 75 U/L (40-130) 06/03/24 19:19 Total Protein 8.1 g/dL (6.6-8.7) 06/03/24 19:19 Albumin 4.7 g/dL (3.5-5.2) 06/03/24 19:19 Globulin 3.4 g/dL (1.3-4.6) 06/03/24 19:19 TSH 3.26 uIU/mL (0.27-4.20) 06/03/24 19:19 Salicylates < 0.3 mg/dL (3-10) L 06/03/24 19:19 Acetaminophen < 5.0 ug/mL (10-30) L 06/03/24 19:19 Ethyl Alcohol < 10 mg/dL (0-10) 06/03/24 19:19 No radiology studies performed this visit Discharge Plan Discharge Patient Disposition: Admitted As Inpatient Clinical Impression: Suicidal ideation, Acute psychosis, Acute anxiety Condition: Stable Coding Level of Care Code [employer] for Kelly Lora
[2024-06-03 19:24] LABS: Basophils % 0.2 %; Eosinophils # 0.1 10^3/uL (0.0-0.8); Eosinophils % 0.4 %; Hematocrit 40.9 % (37-53); Lymphocytes % 16.7 %; Mean Corpuscular HGB Conc 34.5 g/dL (30-55); Mean Corpuscular Hemoglobin 30.2 pg (27-33); Mean Corpuscular Volume 87.6 fl (82-101); Mean Platelet Volume 9.5 fL (7.4-10.4); Monocytes # 0.7 10^3/uL (0.2-0.9); Monocytes % 5.9 %; Neutrophils % 76.4 %; Nucleated Red Blood Cells % 0 %; Platelet Count 227 10^3/cmm (157-399); Red Blood Count 4.67 10^6/uL (3.85-5.65); Red Cell Distribution Width 12.3 % (12.1-15.1); White Blood Count 11.78 10^3/uL (3.29-11.43)
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
[2024-06-03 19:58] LABS: Alanine Aminotransferase 18 U/L (0-41); Albumin Level 4.7 g/dL (3.5-5.2); Alkaline Phosphatase 75 U/L (40-130); Anion Gap 18.2 (5-19); Aspartate Amino Transferase 16 U/L (0-40); Blood Urea Nitrogen 11 mg/dL (6-20); Calcium 9.4 mg/dL (8.5-10.5); Carbon Dioxide 23 mmol/L (22-29); Chloride 100 mmol/L (98-107); Globulin 3.4 g/dL (1.3-4.6); Glomerular Filtration Rate 95.5 mL/min (90-130); Glucose 108 mg/dL (65-115); Osmolality Calculated 286 mOsm/kg (285-295); Potassium 3.2 mmol/L (3.5-5.1); Sodium 138 mmol/L (136-145); Thyroid Stimulating Hormone 3.26 uIU/mL (0.27-4.20); Total Bilirubin 0.5 mg/dL (0.15-1.2); Total Protein 8.1 g/dL (6.6-8.7)
[2024-06-03 20:00] LABS: Acetaminophen < 5.0 ug/mL (10-30); Alcohol Level < 10 mg/dL (0-10); Salicylate < 0.3 mg/dL (3-10)
[2024-06-03] MEDS: LORazepam 2 mg/mL INJ 10 mL MDV IM (20:00)
[2024-06-03] MEDS: water for injection-sterile 10 ML 2.1 ML (20:00)
[2024-06-03] MEDS: ziprasidone 20 mg/mL SDV IM (20:00)
--- NOTE | 2024-06-03 20:05 | PC.NURSE ---
96 Hour Involuntary Hold Patient Rights have been read to the patient and a copy of the same has been given to him. [employer] Superintendent Yenny Sanchez was present at bedside at the time of presentation of Rights.
--- NOTE | 2024-06-03 20:24 | PC.NURSE ---
Pt. is now more compliant and agreeable. Pt. has been taken out of restraints and taken off of the restraint bed and back onto regular bed
[2024-06-03 21:00] VITALS: BP 104/65; PULSE 56; RESP 22; TEMP 36.7; O2SAT 98
[2024-06-03 22:20] VITALS: BP 104/65; PULSE 56; RESP 22; TEMP 36.7; O2SAT 98
[2024-06-04 06:00] VITALS: BP 99/63; PULSE 72; RESP 16; TEMP 37; O2SAT 99
[2024-06-04 09:41] LABS: Bilirubin Urine Neg (Negative); Blood Urine Neg (Negative); Glucose Urine UA Norm (Normal); Ketones Urine 1+ (Negative); Leukocyte Esterase Urine Negative (Negative); Nitrate Urine Negative (Negative); Protein Urine Neg (Negative); Urine Appearance Clear (CLEAR); Urine Color Yellow (Yellow); Urobilinogen Urine Norm (Negative); WBC Urine 0-4 /hpf (0-5); pH Urine 5 (5-7)
[2024-06-04 09:42] LABS: Add Urine Culture? No; Amorphous Sediment Urine 1+ /hpf; Bacteria Urine TRACE /hpf; Mucus Urine 2+ /hpf
[2024-06-04 09:59] LABS: Amphetamines Screen Urine Negative (Negative); Barbiturates Screen Urine Negative (Negative); Benzodiazepines Screen Urine Negative (Negative); Cocaine Screen Urine Negative (Negative); Opiate Screen Urine Positive (Negative); PCP Screen Urine Negative (Negative); THC Screen Urine Positive (Negative)
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
[2024-06-04] MEDS: sertraline 50 mg Tablet PO (13:25)
[2024-06-04 13:59] VITALS: BP 99/66; PULSE 74; RESP 16; TEMP 37; O2SAT 100
[2024-06-04] MEDS: HYDROcodone-acetaminophen 5-325 mg Tablet 1 TAB PO (15:14)
--- NOTE | 2024-06-04 15:49 | PC.NURSE ---
PT HOME MEDICATION ORDER FOR HYDROCODONE 5-325 WAS RECONCILED BY THIS NURSE PER PHYSICIAN ORDERED. ORDER WAS PLACED INCORRECTLY INTO THE SYSTEM AND REQUIRED STATED PT WAS TO GET 5 TABLETS WHEN PT ORDER WAS ACTUALLY FOR 1 TABLET. PT ONLY RECEIVED 1 TABLET FROM THIS NURSE HOWEVER WAS INITIALLY SCANNED IN 5 DUE TO MISUNDERSTANDING ORDER. THIS NURSE AND PHARMACY WORKED TOGETHER TO CORRECT ERROR. NEW ORDER IS PLACED AND PT MEDICATION IS SCANNED IN CORRECTLY. PT CURRENT NEEDS ARE MET AT THIS TIME.
[2024-06-04 19:23] VITALS: BP 133/77; PULSE 71; RESP 18; TEMP 36.9; O2SAT 99
[2024-06-05 06:00] VITALS: BP 113/77; PULSE 93; RESP 17; TEMP 37.1; O2SAT 98
[2024-06-05] MEDS: sertraline 50 mg Tablet PO (08:49)
[2024-06-05] MEDS: HYDROcodone-acetaminophen 5-325 mg Tablet 1 TAB PO ×2 (08:49→20:52)
--- NOTE | 2024-06-05 08:53 | PC.NURSE ---
PT CURRENTLY DENIES SI/HI/AH/VH. PT CURRENTLY DENIES DEPRESSION AND ANXIETY. PT STATED TO THIS NURSE I SLEPT GREAT LAST NIGHT FOR THE FIRST TIME IN A WEEK. PT APPEARS TO BE IN A GOOD MOOD. PT STATED TO THIS NURSE I FEEL LIKE I AM DOING BETTER, THAT OTHER MEDICATION WAS JUST NOT MAKING ME FEEL RIGHT. PT REQUESTED INFORMATIONAL PACKET ON HIS NEW MEDICATION. THIS NURSE PROVIDED THE PACKET AND INFORMED THE PT TO COME TO THIS NURSE IF HE HAD ANY QUESTIONS OR CONCERNS. PT VERBALIZED UNDERSTANDING. PT WAS COOPERATIVE WITH ASSESSMENT AND MEDICATIONS. PT CURRENT NEEDS ARE MET AT THIS TIME.
[2024-06-05 14:00] VITALS: BP 100/66; PULSE 63; RESP 17; TEMP 37.1; O2SAT 100
[2024-06-05] MEDS: ARIPiprazole 2 mg Tablet PO (15:45)
--- NOTE | 2024-06-05 16:23 | P.NPUPN_ITS ---
Subjective NPU 2 Subjective: 38-year-old male with a history of anxie ty and depression admitted with suicidal ideation currently involuntarily hospitalized. The patient had reported that he felt better on the Zoloft. He had continued to endorse some periods of irritability. He had reported having problems with managing his frustration. He had reported no sleep continuity disruption today. Patient had continued to report having depression but stated that he was feeling better with the new addition of Zoloft. Mental Status Exam 2 MSE Comments: Patient is a casually dressed white male who appeared his stated age who was friendly and cooperative on interview. His speech was normal in regards to rate, rhythm, and prosody. His mood was described as better. His affect was slightly irritable and mood incongruent. His thought process was linear, logical and goal-directed. His thought content showed no evidence of suicidal ideation and he denied any homicidal ideation. He did not appear to be responding internal stimuli. There was no clear evidence of delusional thinking. His attention span appeared variable. His recent and remote memory were grossly intact. His insight was limited. His judgment is poor. His impulse control appeared guarded. Vitals/I&O/Wt Last Vital Signs Temp 98.8 F 06/05/24 14:00 Pulse 63 06/05/24 14:00 Resp 17 06/05/24 14:00 BP 100/66 06/05/24 14:00 Pulse Ox 100 06/05/24 14:00 O2 Del Method Room Air 06/04/24 19:23 Weight last 48 hrs Weight 77.111 kg Weight 81.64 kg Data NPU 06/03/24 19:19 06/03/24 19:19 A&P Assessment and plan (1) MDD (major depressive disorder), single episode, severe: (2) Suicidal ideation: (3) PTSD (post-traumatic stress disorder): (4) TIFFANIE (generalized anxiety disorder): Plan 38-year-old male admitted with suicidal ideation and worsening depression with hx of MDD and TIFFANIE on involuntary hold with increased side effects noted on lexapro and continued chronic pain issues. #1.? Engage patient in individual milieu and group therapy. #2?? Recommend sober living treatment at the highest level of care to which the patient is willing to commit #3??? Continue zoloft at 50mg daily to target anxiety and depression. Add Abilify 2mg daily. #4?? TO-15 minute checks Involuntary Hold Information 2 96 Hour Hold: 96 Hour Involuntary Admission: Yes Attestations NPU 2 Medical Necessity Statement*: Inpatient hospitalization is medically necessary and deemed to ?be ?the clinically appropriate intervention ?at this time.? We will monitor/initiate medications and make changes as indicated.? The patient?s likely length of stay 2-4 days. Coding Level of Care Code Acute Code for Chg Fwd Diagnoses MDD (major depressive disorder), single episode, severe F32.2 Suicidal ideation R45.851 PTSD (post-traumatic stress disorder) F43.10 TIFFANIE (generalized anxiety disorder) F41.1
[2024-06-05 19:36] VITALS: BP 125/75; PULSE 60; RESP 18; O2SAT 99
[2024-06-06 06:00] VITALS: BP 93/54; PULSE 72; RESP 18; TEMP 37.3; O2SAT 98
--- NOTE | 2024-06-06 08:00 | PC.NURSE ---
Patient states that he is doing great, I feel like myself again. Patient reports pain 7.5/10. Patient cooperative and calm during assessment. Patient denies SI, Hi, AVH.
[2024-06-06] MEDS: ARIPiprazole 2 mg Tablet PO (09:07)
[2024-06-06] MEDS: sertraline 50 mg Tablet PO (09:08)
[2024-06-06] MEDS: HYDROcodone-acetaminophen 5-325 mg Tablet 1 TAB PO (09:08)
[2024-06-06] MEDS: potassium chloride ER 20 mEq Tablet PO (10:35)
[2024-06-06 14:45] VITALS: BP 93/54; PULSE 72; RESP 18; TEMP 37.3; O2SAT 98
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
== END 2024-06-06 15:50 | disposition home or self-care (01) | DRG 885 ==
LOC: ER 20:26 → NP 20:42
PROVIDERS: Admitting Provider Psychiatry & Neurology Psychiatry; Emergency Provider Emergency Medicine; PCP Nurse Practitioner Family; Visit Provider Psychiatry & Neurology Psychiatry
DX: F32.2 Major depressive disorder, single episode, severe without psychotic features (principal); R45.851 Suicidal ideations; F41.1 Generalized anxiety disorder; F43.10 Post-traumatic stress disorder, unspecified; Z62.810 Personal history of physical and sexual abuse in childhood; G89.29 Other chronic pain; M54.9 Dorsalgia, unspecified; R45.1 Restlessness and agitation
CPT/HCPCS: 36415; 80053; 80306; 80307; 81001; 84443; 85025; 93005; 96372; 97150; 97165; 99285; J2060; J3486

== ENCOUNTER → 2024-08-25 09:39 | Outpatient (BNVA) | payer OTHER, SELFPAY | PROVIDERS: PCP Nurse Practitioner Family; Visit Provider Nurse Practitioner Psychiatric/Mental Health | DX: Z79.899 Other long term (current) drug therapy (principal) | CPT/HCPCS: 80053; 80061; 83036 ==

== ENCOUNTER → 2024-09-01 07:50 | Outpatient (BNVA) | payer SELFPAY | PROVIDERS: PCP Nurse Practitioner Family; Visit Provider Orthopaedic Surgery | DX: Z98.1 Arthrodesis status (principal) | CPT/HCPCS: 72100 ==

== ENCOUNTER 2024-12-22 19:57 | Emergency (ER) | payer SELFPAY ==
[2024-12-22 20:20] VITALS: BP 114/66; PULSE 70; RESP 14; TEMP 36.7; O2SAT 98
--- NOTE | 2024-12-22 23:16 | XRR_ITS ---
PROCEDURE INFORMATION: Exam: XR Pelvis Exam date and time: 12/22/2024 11:22 PM Age: 39 years old Clinical indication: Injury or trauma; Fall; Other: Lower back and pelvic pain; Prior surgery; Surgery date: 6+ months; Surgery type: Lumbar fusion; Additional info: Fall onto tailbone, low back pain TECHNIQUE: Imaging protocol: Radiologic exam of the pelvis. Views: 1 or 2 view. COMPARISON: CR (PELVIS, ) 12/22/2024 11:22 PM FINDINGS: Bones/joints: Unremarkable. No acute fracture. Soft tissues: Unremarkable. XR/XR pelvis 1-2V* [id number] IMPRESSION: No acute findings.
--- NOTE | 2024-12-22 23:16 | XRR_ITS ---
PROCEDURE INFORMATION: Exam: XR Lumbosacral Spine Exam date and time: 12/22/2024 11:22 PM Age: 39 years old Clinical indication: Injury or trauma; Fall; Other: Lower back pain; Prior surgery; Surgery date: 6+ months; Surgery type: Lumbar fusion; Additional info: Fall/low back pain TECHNIQUE: Imaging protocol: Radiologic exam of the lumbosacral spine. Views: 2 or 3 views. COMPARISON: CR XR lumbar spine 2-3V* [id number] 09/01/2024 7:51 AM FINDINGS: Bones/joints: Postoperative changes from posterior fusion and discectomy at L5-S1. There is mild grade 1 anterolisthesis of L5 respect to S1. There is chronic wedging of the L1 vertebral body. No acute bony abnormality. Soft tissues: Unremarkable. XR/XR lumbar spine 2-3V* [id number] IMPRESSION: No acute bony abnormality. Postoperative changes as detailed.
--- NOTE | 2024-12-22 23:17 | ED_ITS ---
HPI - Back Pain/Injury General: Chief Complaint: Back Pain/Injury Stated Complaint: repeated fall left leg not bear weight w/o popping Time Seen by Provider: 12/22/24 20:58 Source: patient Mode of arrival: ambulatory Limitations: no limitations History of Present Illness: Patient is a 39-year-old male presents the emergency department complaining of low back pain for the past few days. States that he has fallen numerous times onto his butt, and he has a history of surgery occurring last March and he states that pain has got so severe he cannot walk. No bowel or bladder incontinence. Has been taking [place] for pain but this has not been helping. Reports that pain is to left lower back region, no midline pain. Does not report any fevers, trauma, unexplained weight loss, neurological symptoms, IVDU, steroid use, or history of cancer. MD elicited complaint: back pain Pertinent past history: recent trauma and back surgery Onset (ago): day(s) Timing: constant Severity: severe Similar Symptoms Previously: Yes Location: left lower back Radiation: none Exacerbating factors: movement and walking Relieving factors: none Context: fall Associated symptoms: Deny abdominal pain, difficulty walking, fecal incontinence, fever(s) or syncope Related Data Home Medications ?Medication ?Instructions ?Recorded ?Confirmed fexofenadine 180 mg tablet 180 mg PO DAILY PRN ALLERGI ES 03/04/24 09/01/24 (Caty Allergy) sennosides 8.6 mg-docusate sodium 1 tab-cap PO DAILY 0 06/03/24 09/01/24 50 mg tablet (Senna-S) Previous Rx's ?Medication ?Instructions ?Recorded hydrocodone 5 mg-acetaminophen 325 5 - 325 tab PO Q4H PRN Pain 7 days 05/31/24 mg tablet #40 tabs potassium chloride 20 mEq 20 meq PO DAILY 7 days #7 ta bs 06/06/24 tablet,extended release(part/cryst) (Klor-Con M) aripiprazole 5 mg tablet 5 mg PO .q am 30 days #30 ta bs 08/25/24 sertraline 50 mg tablet 50 mg PO .q am #30 tabs 08/03 02/23 Allergies Allergy/AdvReac Type Severity Reaction Status Date / Time oxycodone (From Percocet) Allergy ADR-Vomitin Verified 12/22/24 20:25 g Review of Systems General: Reports: 10 or more systems reviewed and unremarkable except in HPI and below Const: Reports: other (denies trauma); Denies: fever(s), change in weight or night sweats Card: Denies: chest pain, lightheadedness or syncope Resp: Denies: dyspnea GI: Denies: abdominal pain or fecal incontinence : Denies: urinary incontinence Musc: Reports: back pain; Denies: neck pain or extremity pain Skin/Breast: Denies: rash or skin pain Neuro: Denies: headache(s), numbness in extremities, weakness in extremities, sensory changes, lack of coordination, difficulty walking, frequent falls or involuntary movements PFS ED PFSH: Medical History Psychiatric care Broken back 2014 Surgical History Hx of hernia repair Family History Mother Liver disease Father Non Hodgkin's lymphoma Social History Smoking and tobacco/nicotine status: unknown if used tobacco/nicotine Alcohol intake: current Alcohol intake frequency: few times a month Physical Exam Const: COMMON NORMALS: patient oriented x3, no limitations and alert ORIENTATION/CONSCIOUSNESS: Yes awake OTHER: Appears uncomfortable Resp: COMMON NORMALS: normal respiratory effort, No retractions, No use of accessory muscles and clear to auscultation bilaterally AUSCULTATION: clear to auscultation bilaterally Cardio: COMMON NORMALS: regular rate, regular rhythm, S1 normal heart sound present and S2 normal heart sound present RATE: regular rate RHYTHM: regular rhythm HEART SOUNDS: S1 normal heart sound present and S2 normal heart sound present Back/Pelvis: COMMON NORMALS: straight leg raise negative bilaterally OTHER: Postoperative scar lumbar spine appearing well. Reproducible tenderness palpation to the left lower back. No spinous process tenderness. Extremity: COMMON NORMALS: normal to inspection and full ROM Neuro: COMMON NORMALS: patient oriented x3, moves all extremities, no focal motor deficits, no sensory deficits noted, deep tendon reflexes 2+ bilaterally and gait normal SENSORIUM/ORIENTATION: Yes alert OTHER: L3, L4, L5, and S1 nerve sensations intact. Normal knee jerk and ankle jerk reflexes. Skin: COMMON NORMALS: no rashes or lesions noted GENERAL SKIN EXAM: no rashes or lesions noted Course Vital Signs: Vital signs: Vital Signs Temperature 98.1 F 12/22/24 20:20 Pulse Rate 70 12/22/24 20:20 Respiratory Rate 14 12/22/24 20:20 Blood Pressure 114/66 12/22/24 20:20 Pulse Oximetry 98 12/22/24 20:20 MDM - Back Pain/Injury Medical Decision Making Patient reporting he has fallen multiple times with the past couple of days on the ice, injured his back in the process. Reported history of lumbar fusion to his low back. No red flag symptoms on exam with history, it was easily reproducible to the left lower back on exam. X-rays did not demonstrate any acute findings. He already takes [place] and will treat here with medications and have him follow-up with primary care and return with any new or worsening. He verbalized understanding. Labs Radiology Impressions Lumbar Spine X-Ray 12/22/24 23:16 IMPRESSION: No acute bony abnormality. Postoperative changes as detailed. Pelvis X-Ray 12/22/24 23:16 IMPRESSION: No acute findings. All radiology interpretation(s) finalized by discharge Discharge Plan Discharge Patient Disposition: Home Clinical Impression: Contusion of lower back Qualifiers: Encounter type: initial encounter Qualified Code(s): S30.0XXA - Contusion of lower back and pelvis, initial encounter Condition: Stable Prescriptions: No Action hydrocodone-acetaminophen 5-325 mg tablet 5 - 325 tab PO Q4H PRN (Reason: Pain) 7 Days Qty: 40 0RF aripiprazole 5 mg tablet 5 mg PO .q am 30 Days Qty: 30 2RF Rx Instructions: Take one tablet by mouth every morning sertraline 50 mg tablet 50 mg PO .q am Qty: 30 2RF Rx Instructions: Take one tablet by mouth every morning fexofenadine [Caty Allergy] 180 mg tablet 180 mg PO DAILY PRN (Reason: ALLERGIES) Senna-S 8.6-50 mg Tablet 1 tab-cap PO DAILY Klor-Con M20 20 mEq Tablet,Er Particles/Crystals 20 meq PO DAILY 7 Days Qty: 7 1RF Discharge Orders: Discharge ED (Routine); Ordered 12/23/24 Ordered By: Moshe Duckworth Referrals: Tracey Pagan FNP [Primary Care Provider] - Patient Instructions: Contusion in Adults (ED) Activity Restrictions/Additional Instructions: Sit on ice as we discussed. Continue taking your [place] at home. May also alternate this with ibuprofen. Range of motion exercises as tolerated. Return with any concerning symptoms as we discussed. Follow-up routinely with primary care. Print Language: Stateless Coding Level of Care Code ED Email Campaign Manager for Kelly Lora
[2024-12-23] MEDS: dexamethasone 10 mg/mL INJ IM (00:01)
[2024-12-23] MEDS: ketorolac 60 mg/2 mL INJ IM (00:01)
[2024-12-23] MEDS: orphenadrine 30 mg/mL Inj 2 mL 60 MG IM (00:01)
[2024-12-23 00:35] VITALS: PULSE 69; RESP 16; O2SAT 98
== END 2024-12-23 00:38 | disposition home or self-care (01) ==
PROVIDERS: Emergency Provider Physician Assistant; PCP Nurse Practitioner Family
DX: S30.0XXA Contusion of lower back and pelvis, initial encounter (principal); W19.XXXA Unspecified fall, initial encounter
CPT/HCPCS: 72100; 72170; 96372; 99284; J1100; J1885; J2360

== ENCOUNTER → 2025-04-06 08:17 | Outpatient (BNVA) | payer BC, MEDICAID, SELFPAY | PROVIDERS: PCP Nurse Practitioner Family; Visit Provider Orthopaedic Surgery | DX: M54.9 Dorsalgia, unspecified (principal); M54.2 Cervicalgia | CPT/HCPCS: 72050; 72100 ==

== ENCOUNTER 2025-05-22 12:59 | Outpatient (CLI) | payer BC, MEDICAID, SELFPAY ==
--- NOTE | 2025-05-22 13:15 | XRR_ITS ---
PROCEDURE INFORMATION: Exam: XR Thoracic Spine Exam date and time: 05/22/2025 1:24 PM Age: 39 years old Clinical indication: Pain in thoracic spine; Prior surgery; Surgery date: 6+ months; Surgery type: L spine; Back pain, multiple falls 6 months ago; Additional info: M54.6 - pain in thoracic spine TECHNIQUE: Imaging protocol: Radiologic exam of the thoracic spine. Views: 3 views. COMPARISON: CR XR thoracic spine 3V* [id number] 06/09/2023 9:13 AM FINDINGS: Bones/joints: Normal. No acute fracture. Normal alignment. Soft tissues: Unremarkable. XR/XR thoracic spine 3V* [id number] IMPRESSION: No acute findings.
== END 2025-05-22 13:00 | disposition home or self-care (01) ==
LOC: RAD 13:01
PROVIDERS: PCP Nurse Practitioner Family; Visit Provider Nurse Practitioner Family
DX: M54.6 Pain in thoracic spine (principal)
CPT/HCPCS: 72072